=== PATIENT | male | born 1960 | race Caucasian/White ===

== ENCOUNTER 2019-02-10 18:02 | Emergency (ER) | payer OTHER ==
[2019-02-10 18:07] VITALS: RESP 18
[2019-02-10] MEDS ORDERED: SODIUM CHLORIDE 0.9% 1,000 ML IV ONE (18:23)
[2019-02-10] MEDS ORDERED: HYDROmorphone 1 MG/ML 1 ML SYRINGE IVP STA (18:23)
[2019-02-10] MEDS ORDERED: ONDANSETRON 4 MG/2 ML VIAL IVP STA (18:26)
--- NOTE | 2019-02-10 18:42 | ED ---
General Adult HPI - General Chief complaint: Extremity Injury, Lower Stated complaint: knee pain Time Seen by Provider: 02/10/19 18:08 Source: patient Mode of arrival: wheelchair Limitations: no limitations - History of Present Illness Initial comments: 58-year-old male patient presents to the emergency department today for evaluation of right knee pain and swelling. Patient states that the knee started to swell up yesterday morning and has been worsening since. Patient states that the pain is intense. States he is unable to fully straighten the l eg or flex the knee. Denies any redness to the knee. He denies any fever or chills however did have elevated temperature in triage of 101.1F. Patient states he did have an injury to the knee 2 years ago. He denies any recent injury. He denies any numbness or tingling to the leg. Patient denies any recent rash, shortness breath, chest pain, abdominal pain, nausea, vomiting, diarrhea, constipation, back pain, dizziness, weakness, hematuria, dysuria, urinary urgency, urinary frequency, headache, visual changes, or any other complaints. - Related Data Home Medications Medication Instructions Recorded Confirmed Acetaminophen Tab [Tylenol Tab] 1,500 mg PO DAILY PRN 02/10/19 02/10/19 Previous Rx's Medication Instructions Recorded Hydrocodone/Acetaminophen [[place] 1 tab PO Q6HR PRN #12 tab 02/10/19 5-325] Ketorolac [Toradol] 10 mg PO Q6HR #12 tab 02/10/19 Allergies Allergy/AdvReac Type Severity Reaction Status Date / Time No Known Allergies Allergy Verified 02/10/19 20:24 Review of Systems ROS Statement: Those systems with pertinent positive or pertinent negative responses have been documented in the HPI. ROS Other: All systems not noted in ROS Statement are negative. Past Medical History Past Medical History: No Reported History History of Any Multi-Drug Resistant Organisms: None Reported Past Surgical History: Hernia Repair, Orthopedic Surgery Past Psychological History: No Psychological Hx Reported Smoking Status: Current every day smoker Past Alcohol Use History: Occasional Past Drug Use History: None Reported General Exam Limitations: no limitations General appearance: alert, in no apparent distress, other (Physical well-developed, well-nourished adult male patient in no acute distress. Vital signs upon presentation are temperature 101.1F, pulse 76, respirations 18, blood pressure 171/80, pulse ox 98% on room air.) Eye exam: Present: normal appearance, PERRL, EOMI. Absent: scleral icterus, conjunctival injection, periorbital swelling ENT exam: Present: normal exam, normal oropharynx, mucous membranes moist Respiratory exam: Present: normal lung sounds bilaterally. Absent: respiratory distress, wheezes, rales, rhonchi, stridor Cardiovascular Exam: Present: regular rate, normal rhythm, normal heart sounds. Absent: systolic murmur, diastolic murmur, rubs, gallop, clicks Extremities exam: Present: normal capillary refill, joint swelling (Swelling surrounding the right knee joint), other (Skin to the right lower showed is pink, warm, dry. Cap refills less than 3 seconds. Pedal and posttibial pulses 2+ and equal bilaterally.). Absent: normal inspection, full ROM (Patient has decreased range of motion to the right knee), tenderness, pedal edema, calf tenderness Neurological exam: Present: alert, oriented X3, CN II-XII intact Psychiatric exam: Present: normal affect, normal mood Skin exam: Present: warm, dry, intact, normal color. Absent: rash Course Vital Signs 02/10/19 02/10/19 02/10/19 18:04 19:34 20:50 Temperature 101.1 F H 100.2 F H Pulse Rate 76 64 Respiratory 18 18 18 Rate Blood Pressure 171/80 164/73 135/73 O2 Sat by Pulse 98 95 96 Oximetry 02/10/19 23:54 Temperature 98.6 F Pulse Rate 70 Respiratory 18 Rate Blood Pressure 130/80 O2 Sat by Pulse 98 Oximetry Medical Decision Making - Medical Decision Making 58-year-old male patient presented to the emergency department today for evaluation of right knee pain and swelling. Physical examination did reveal generalized swelling of the right knee with effusion. Neurovascular status is intact. There is no overlying cellulitis or warmth. Patient was febrile at 101.1F. Labs reviewed and revealed normal white blood cell, dysuria or C- reactive protein of 41.6. Dr. Colmenares was consulted for possible septic joint, he did perform knee aspiration, fluid was sent for analysis. Results showed 41,200 nucleated cells. Gram stain was negative for organisms. Crystals and culture are still pending. Patient was reporting improve symptoms after aspiration pain medication here in the emergency department. Patient will be discharged at this time with anti-inflammatory and pain medication. He is instructed to follow-up with Dr. Colmenares for recheck as soon as possible. Return parameters were discussed in detail. He verbalizes understanding and agrees with this plan. - Lab Data Result diagrams: 02/10/19 18:45 02/10/19 18:45 Lab Results 02/10/19 02/10/19 02/10/19 Range/Units 18:45 18:45 18:45 WBC 10.1 (3.8-10.6) k/uL RBC 4.47 (4.30-5.90) m/uL Hgb 14.1 (13.0-17.5) gm/dL Hct 42.7 (39.0-53.0) % MCV 95.6 (80.0-100.0) fL MCH 31.5 (25.0-35.0) pg MCHC 32.9 (31.0-37.0) g/dL RDW 13.9 (11.5-15.5) % Plt Count 295 (150-450) k/uL Neutrophils % 85 % Lymphocytes % 7 % Monocytes % 7 % Eosinophils % 1 % Basophils % 0 % Neutrophils # 8.6 H (1.3-7.7) k/uL Lymphocytes # 0.7 L (1.0-4.8) k/uL Monocytes # 0.7 (0-1.0) k/uL Eosinophils # 0.1 (0-0.7) k/uL Basophils # 0.0 (0-0.2) k/uL ESR 11 (0-15) mm/hr Sodium 137 (137-145) mmol/L Potassium 4.3 (3.5-5.1) mmol/L Chloride 105 (98-107) mmol/L Carbon Dioxide 24 (22-30) mmol/L Anion Gap 8 mmol/L BUN 11 (9-20) mg/dL Creatinine 0.62 L (0.66-1.25) mg/dL Est GFR (CKD-EPI)AfAm >90 (>60 ml/min/1.73 sqM) Est GFR (CKD-EPI)NonAf >90 (>60 ml/min/1.73 sqM) Glucose 130 H (74-99) mg/dL Plasma Lactic Acid Quang 1.5 (0.7-2.0) mmol/L Calcium 9.3 (8.4-10.2) mg/dL Total Bilirubin 1.0 (0.2-1.3) mg/dL AST 15 L (17-59) U/L ALT 15 L (21-72) U/L Alkaline Phosphatase 99 (38-126) U/L C-Reactive Protein 41.6 H (<10.0) mg/L Total Protein 6.4 (6.3-8.2) g/dL Albumin 4.0 (3.5-5.0) g/dL Fluid Source Fluid Color Fluid Appearance Fluid RBC /uL Fluid Nucleated Cells /uL Fluid Polynuclear WBCs % Fluid Mononuclear WBCs % 02/10/19 Range/Units 21:22 WBC (3.8-10.6) k/uL RBC (4.30-5.90) m/uL Hgb (13.0-17.5) gm/dL Hct (39.0-53.0) % MCV (80.0-100.0) fL MCH (25.0-35.0) pg MCHC (31.0-37.0) g/dL RDW (11.5-15.5) % Plt Count (150-450) k/uL Neutrophils % % Lymphocytes % % Monocytes % % Eosinophils % % Basophils % % Neutrophils # (1.3-7.7) k/uL Lymphocytes # (1.0-4.8) k/uL Monocytes # (0-1.0) k/uL Eosinophils # (0-0.7) k/uL Basophils # (0-0.2) k/uL ESR (0-15) mm/hr Sodium (137-145) mmol/L Potassium (3.5-5.1) mmol/L Chloride (98-107) mmol/L Carbon Dioxide (22-30) mmol/L Anion Gap mmol/L BUN (9-20) mg/dL Creatinine (0.66-1.25) mg/dL Est GFR (CKD-EPI)AfAm (>60 ml/min/1.73 sqM) Est GFR (CKD-EPI)NonAf (>60 ml/min/1.73 sqM) Glucose (74-99) mg/dL Plasma Lactic Acid Quang (0.7-2.0) mmol/L Calcium (8.4-10.2) mg/dL Total Bilirubin (0.2-1.3) mg/dL AST (17-59) U/L ALT (21-72) U/L Alkaline Phosphatase (38-126) U/L C-Reactive Protein (<10.0) mg/L Total Protein (6.3-8.2) g/dL Albumin (3.5-5.0) g/dL Fluid Source Synovial Fluid Color [place] Fluid Appearance Cloudy Fluid RBC 63529 /uL Fluid Nucleated Cells 06573 /uL Fluid Polynuclear WBCs 93 % Fluid Mononuclear WBCs 7 % - Radiology Data Radiology results: report reviewed, image reviewed Three-view x-ray of the right knee were obtained. Report was reviewed in its entirety. Impression by Dr. Arnold shows no acute fracture dislocation. Severe narrowing and spurring medio-tibiofemoral compartment. Mild to moderate narrowing lateral tibiofemoral compartment. There is moderate narrowing and spurring patellofemoral compartment. There is a large suprapatellar joint effusion with increased density around the suprapatellar bursa. Disposition Clinical Impression: Arthritis of right knee, Effusion, right knee Disposition: HOME SELF-CARE Condition: Good Instructions (If sedation given, give patient instructions): Osteoarthritis (ED), Swollen Knee Joint (ED) Additional Instructions: Use rosa wrap for comfort and support. Take medication as directed. Follow up with access control specialist for recheck as soon as possible. Return to the emergency department for any new, worsening, or concerning symptoms. Prescriptions: Hydrocodone/Acetaminophen [[place] 5-325] 1 tab PO Q6HR PRN #12 tab PRN Reason: Pain Ketorolac [Toradol] 10 mg PO Q6HR #12 tab Is patient prescribed a controlled substance at d/c from ED?: No Referrals: Angelito Colmenares MD [Medical Doctor] - 1-2 days Time of Disposition: 23:32
[2019-02-10 19:05] LABS: Basophils % (A) 0 %; Eosinophils # (A) 0.1 k/uL (0-0.7); Eosinophils % (A) 1 %; HCT 42.7 % (39.0-53.0); HGB 14.1 gm/dL (13.0-17.5); Lymphocytes # (A) 0.7 k/uL (1.0-4.8); Lymphocytes % (A) 7 %; MCH 31.5 pg (25.0-35.0); MCHC 32.9 g/dL (31.0-37.0); MCV 95.6 fL (80.0-100.0); Mean Platelet Volume 6.9; Monocytes # (A) 0.7 k/uL (0-1.0); Monocytes % (A) 7 %; Neutrophils # (A) 8.6 k/uL (1.3-7.7); Neutrophils % (A) 85 %; Platelet Count 295 k/uL (150-450); RBC 4.47 m/uL (4.30-5.90); RDW 13.9 % (11.5-15.5); WBC 10.1 k/uL (3.8-10.6)
[2019-02-10] MEDS ORDERED: ACETAMINOPHEN TAB 500 MG TAB PO STA (19:07)
[2019-02-10 19:19] LABS: ALT 15 U/L (21-72); AST 15 U/L (17-59); Alkaline Phosphatase 99 U/L (38-126); Anion Gap 8 mmol/L; Blood Urea Nitrogen 11 mg/dL (9-20); C Reactive Protein 41.6 mg/L (<10.0); Calcium 9.3 mg/dL (8.4-10.2); Carbon Dioxide 24 mmol/L (22-30); Chloride 105 mmol/L (98-107); Glucose 130 mg/dL (74-99); Potassium 4.3 mmol/L (3.5-5.1); Sodium 137 mmol/L (137-145); Total Protein 6.4 g/dL (6.3-8.2)
--- NOTE | 2019-02-10 19:25 | XR ---
EXAMINATION TYPE: XR knee complete RT DATE OF EXAM: 02/10/2019 CLINICAL HISTORY: Injury 2 years ago with pain and swelling TECHNIQUE: Three views of the right knee are obtained. COMPARISON: None. FINDINGS: There is no acute fracture/dislocation evident in right knee. There is severe narrowing an d spurring medial tibiofemoral compartment. There is mild/moderate narrowing lateral tibiofemoral co mpartment. There is moderate narrowing and spurring patellofemoral compartment . There is large supra patellar joint effusion with increased density suprapatellar bursa. IMPRESSION: As above.
[2019-02-10 19:56] LABS: Erythrocyte Sedimentation Rate 11 mm/hr (0-15)
[2019-02-10] MEDS ORDERED: VANCOMYCIN IV PER PHARMACY 1 EACH MISC MISCELLANE PRN (20:20)
[2019-02-10] MEDS ORDERED: HYDROmorphone 2 MG/ML 1 ML SYRINGE IVP STA (20:48)
[2019-02-10] MEDS ORDERED: VANCOMYCIN 1,750 MG in SODIUM CHLORIDE 0.9% 500 ML 500 ML IVPB STA (20:54)
[2019-02-10] MEDS ORDERED: LIDOCAINE 1% INJ 10MG/ML (20 ML MDV) SQ ONE (20:55)
--- NOTE | 2019-02-10 21:34 | P.CNOR ---
History of Present Illness - [facility] Consult date: 02/10/19 Consult reason: joint pain History of present illness: The patient is a 58-year-old male with a medical history significant for cigarette smoking and a known history of posttraumatic right knee arthritis. He presented to the ER with increasing knee pain and swelling. Over the last week his knee pain is progressively worsened to the point that he had difficulty walking today. He's had low-grade fevers but denies chills or feelings of generalized malaise. He was seen in the ER were clinically he was found to have a large effusion, x-rays showed severe arthritis, and his CRP was elevated. Orthopedics was consulted to rule out septic arthritis. Past Medical History Past Medical History: No Reported History History of Any Multi-Drug Resistant Organisms: None Reported Past Surgical History: Hernia Repair, Orthopedic Surgery Past Psychological History: No Psychological Hx Reported Smoking Status: Current every day smoker Past Alcohol Use History: Occasional Past Drug Use History: None Reported Medications and Allergies Home Medications Medication Instructions Recorded Confirmed Type Acetaminophen Tab [Tylenol Tab] 1,500 mg PO DAILY PRN 02/10/19 02/10/19 History Allergies Allergy/AdvReac Type Severity Reaction Status Date / Time No Known Allergies Allergy Verified 02/10/19 20:24 Physical Examination A focused examination of the right lower extremity was conducted. On inspection of the knee there is diffuse swelling and a large, tense knee effusion. There is mild warmth to the knee but no overlying erythema or fluctuance. There is exquisite tenderness throughout the knee. There is pain with any attempted passive range of motion. Results X-rays of the right knee show severe arthritic changes and a large effusion. - Labs Labs: Abnormal Lab Results - Last 24 Hours (Table) 02/10/19 02/10/19 Range/Units 18:45 18:45 Neutrophils # 8.6 H (1.3-7.7) k/uL Lymphocytes # 0.7 L (1.0-4.8) k/uL Creatinine 0.62 L (0.66-1.25) mg/dL Glucose 130 H (74-99) mg/dL AST 15 L (17-59) U/L ALT 15 L (21-72) U/L C-Reactive Protein 41.6 H (<10.0) mg/L H & H 02/10/19 Range/Units 18:45 Hgb 14.1 (13.0-17.5) gm/dL Hct 42.7 (39.0-53.0) % Result Diagrams: 02/10/19 18:45 02/10/19 18:45 Assessment and Plan Plan: The patient is a 58-year-old male with a medical history significant for cigarette smoking and known history of right knee arthritis presenting with acu te onset right knee effusion. An aspiration was performed in the emergency department and close to 100 mL of thick bloody fluid was aspirated. The fluid was sent to lab for Gram stain, cultures, cell count, and crystal analysis. If the synovial fluid analysis comes back as either crystalline arthropathy or an acute traumatic effusion the patient to be discharged. If there is concern for infection he'll need to be admitted to internal medicine for IV antibiotics, a formal incision and drainage in the operating room and an infectious disease consultation. Final disposition is pending synovial fluid analysis. Procedure: Verbal consent for a right knee aspiration was obtained area did the skin over the superolateral pole of patella was prepped with alcohol and ChloraPrep. An 18-gauge needle was inserted into the suprapatellar pouch and a 10 mL syringe was filled with fluid and handed off to be sent to the lab. A 20 mL syringe was then used to remove the remaining fluid from the knee. Close to 100 mL of fluid was removed. The needle was withdrawn and a Band-Aid was applied. The patient tolerated the aspiration well. Time with Patient: Less than 30
--- NOTE | 2019-02-10 22:49 | XR ---
EXAM: XR Chest, 2 Views CLINICAL HISTORY: Pain TECHNIQUE: Frontal and lateral views of the chest. COMPARISON: No relevant prior studies available. FINDINGS: Lungs: Unremarkable. No consolidation. Pleural space: Unremarkable. No pneumothorax. Heart: Unremarkable. No cardiomegaly. Mediastinum: Unremarkable. Bones/joints: Unremarkable. IMPRESSION: Normal chest x-rays.
[2019-02-10 23:20] LABS: Appearance,BF Cloudy; Color,BF Orange; Nucleated Cells, Body Fluid 41200 /uL; RBC, Body Fluid 91500 /uL
[2019-02-10 23:55] VITALS: BP 130/80; PULSE 70; TEMP 98.6
[2019-02-11 00:13] LABS: Mononuclear WBC,Body Fluid 7 %; Polynuclear WBC,Body Fluid 93 %; Total Cells Counted,Body Fluid 100
[2019-02-11] MEDS ORDERED: VANCOMYCIN 1,500 MG in SODIUM CHLORIDE 0.9% 250 ML IVPB SCH (06:00)
== END 2019-02-10 23:54 | disposition home or self-care (01) ==
LOC: EC 18:02
DX: M17.11 Unilateral primary osteoarthritis, right knee (principal); M25.461 Effusion, right knee; F17.210 Nicotine dependence, cigarettes, uncomplicated; Z53.8 Procedure and treatment not carried out for other reasons
CPT/HCPCS: 99284; 20610; 96365; 96375 ×2; 96376; 96361; 36415; 89060; 80053; 85652; 89050; 83605; 85025; 86140; 87040; 87070; 87205; 73562; 71046; J1170 ×2; J2405; J0696

== ENCOUNTER 2019-02-11 10:41 | Inpatient (IN) | payer OTHER ==
--- NOTE | 2019-02-11 11:26 | ED ---
General Adult HPI - General Chief complaint: Extremity Injury, Lower Stated complaint: knee pain-revisit Time Seen by Provider: 02/11/19 10:54 Source: patient, RN notes reviewed Mode of arrival: ambulatory Limitations: no limitations - History of Present Illness Initial comments: 58-year-old male presents to the emergency department for a chief complaint of right knee pain and swelling 2 days. Patient states this started hurting Tuesday morning when he woke up. States it was swollen at that time. States that yesterday it was too painful to walk on so he came to the emergency department. Patient states the knee was drained by Dr Noel and he was sent home as laboratory work showed a likely inflammatory etiology. States that he felt much better after the knee was drained. However throughout the night it started to swell again and pain has returned. Patient did have a fever yesterday in the ER. However no fevers overnight that he is aware of. He does admit to a cough for the past 2 weeks however chest x-ray yesterday was negative. Patient has no other complaints at this time including shortness of breath, chest pain, abdominal pain, nausea or vomiting, headache, or visual changes. - Related Data Home Medications Medication Instructions Recorded Confirmed Acetaminophen Tab [Tylenol Tab] 1,500 mg PO DAILY PRN 02/10/19 02/10/19 Previous Rx's Medication Instructions Recorded Hydrocodone/Acetaminophen [[place] 1 tab PO Q6HR PRN #12 tab 02/10/19 5-325] Ketorolac [Toradol] 10 mg PO Q6HR #12 tab 02/10/19 Allergies Allergy/AdvReac Type Severity Reaction Status Date / Time No Known Allergies Allergy Verified 02/11/19 10:48 Review of Systems ROS Statement: Those systems with pertinent positive or pertinent negative responses have been documented in the HPI. ROS Other: All systems not noted in ROS Statement are negative. Past Medical History Past Medical History: No Reported History History of Any Multi-Drug Resistant Organisms: None Reported Past Surgical History: Hernia Repair, Orthopedic Surgery Past Psychological History: No Psychological Hx Reported Smoking Status: Current every day smoker Past Alcohol Use History: Occasional Past Drug Use History: None Reported General Exam Limitations: no limitations General appearance: alert, in no apparent distress Head exam: Present: atraumatic, normocephalic, normal inspection Eye exam: Present: normal appearance, PERRL, EOMI. Absent: scleral icterus, conjunctival injection, periorbital swelling ENT exam: Present: normal exam, mucous membranes moist Neck exam: Present: normal inspection, full ROM. Absent: tenderness, meningismus, lymphadenopathy Respiratory exam: Present: normal lung sounds bilaterally. Absent: respiratory distress, wheezes, rales, rhonchi, stridor Cardiovascular Exam: Present: regular rate, normal rhythm, normal heart sounds. Absent: systolic murmur, diastolic murmur, rubs, gallop, clicks Extremities exam: Present: tenderness (generalized tenderness noted over the right knee), normal capillary refill (cap refill < 2 seconds and dp pulse 2+), joint swelling (significant edema noted of the right knee joint, no erythema present), other (sensation intact in RLE, skin intact). Absent: full ROM (patient is able to flex to about 30 degrees ), calf tenderness Course Vital Signs 02/11/19 10:45 Temperature 98.6 F Pulse Rate 81 Respiratory 18 Rate Blood Pressure 164/84 O2 Sat by Pulse 98 Oximetry Medical Decision Making - Medical Decision Making 50-year-old male with right knee pain and swelling 3 days. States it is painful to walk on and then. On exam patient is a have about 30 flexion. Significant edema noted. No significant erythema. CBC unremarkable. White count 7.6. CMP does show a CRP of 181. Synovial fluid results reviewed from yesterday. Patient was seen by Dr. Noel, likely thinks this is inflammatory but is going to take patient the patient for irrigation. Patient will be ad mitted, and no antibiotics per Dr. noel. - Lab Data Result diagrams: 02/11/19 12:07 02/11/19 12:07 Lab Results 02/11/19 02/11/19 Range/Units 12:07 12:07 WBC 7.6 (3.8-10.6) k/uL RBC 4.25 L (4.30-5.90) m/uL Hgb 13.5 (13.0-17.5) gm/dL Hct 40.3 (39.0-53.0) % MCV 94.9 (80.0-100.0) fL MCH 31.9 (25.0-35.0) pg MCHC 33.6 (31.0-37.0) g/dL RDW 13.4 (11.5-15.5) % Plt Count 252 (150-450) k/uL Neutrophils % 73 % Lymphocytes % 12 % Monocytes % 12 % Eosinophils % 1 % Basophils % 0 % Neutrophils # 5.6 (1.3-7.7) k/uL Lymphocytes # 0.9 L (1.0-4.8) k/uL Monocytes # 0.9 (0-1.0) k/uL Eosinophils # 0.1 (0-0.7) k/uL Basophils # 0.0 (0-0.2) k/uL Sodium 136 L (137-145) mmol/L Potassium 4.4 (3.5-5.1) mmol/L Chloride 107 (98-107) mmol/L Carbon Dioxide 24 (22-30) mmol/L Anion Gap 5 mmol/L BUN 10 (9-20) mg/dL Creatinine 0.62 L (0.66-1.25) mg/dL Est GFR (CKD-EPI)AfAm >90 (>60 ml/min/1.73 sqM) Est GFR (CKD-EPI)NonAf >90 (>60 ml/min/1.73 sqM) Glucose 106 H (74-99) mg/dL Calcium 9.0 (8.4-10.2) mg/dL Total Bilirubin 1.6 H (0.2-1.3) mg/dL AST 16 L (17-59) U/L ALT 19 L (21-72) U/L Alkaline Phosphatase 87 (38-126) U/L C-Reactive Protein 181.6 H (<10.0) mg/L Total Protein 5.9 L (6.3-8.2) g/dL Albumin 3.5 (3.5-5.0) g/dL Disposition Clinical Impression: Knee effusion, right, Elevated C-reactive protein (CRP) Disposition: ADMITTED IP TO THIS HOSP Condition: Fair Is patient prescribed a controlled substance at d/c from ED?: No Referrals: None,Stated [Primary Care Provider] - 1-2 days Time of Disposition: 14:18
[2019-02-11] MEDS ORDERED: KETOROLAC 30 MG/ML 1 ML VIAL IM STA (11:27)
[2019-02-11] MEDS ORDERED: SODIUM CHLORIDE 0.9% 1,000 ML IV STA (11:57)
[2019-02-11 12:17] LABS: Basophils % (A) 0 %; Eosinophils # (A) 0.1 k/uL (0-0.7); Eosinophils % (A) 1 %; HCT 40.3 % (39.0-53.0); HGB 13.5 gm/dL (13.0-17.5); Lymphocytes # (A) 0.9 k/uL (1.0-4.8); Lymphocytes % (A) 12 %; MCH 31.9 pg (25.0-35.0); MCHC 33.6 g/dL (31.0-37.0); MCV 94.9 fL (80.0-100.0); Mean Platelet Volume 6.9; Monocytes # (A) 0.9 k/uL (0-1.0); Monocytes % (A) 12 %; Neutrophils # (A) 5.6 k/uL (1.3-7.7); Neutrophils % (A) 73 %; Platelet Count 252 k/uL (150-450); RBC 4.25 m/uL (4.30-5.90); RDW 13.4 % (11.5-15.5); WBC 7.6 k/uL (3.8-10.6)
[2019-02-11 12:31] LABS: ALT 19 U/L (21-72); AST 16 U/L (17-59); Albumin 3.5 g/dL (3.5-5.0); Alkaline Phosphatase 87 U/L (38-126); Anion Gap 5 mmol/L; Blood Urea Nitrogen 10 mg/dL (9-20); Carbon Dioxide 24 mmol/L (22-30); Chloride 107 mmol/L (98-107); Glucose 106 mg/dL (74-99); Potassium 4.4 mmol/L (3.5-5.1); Sodium 136 mmol/L (137-145); Total Bilirubin 1.6 mg/dL (0.2-1.3); Total Protein 5.9 g/dL (6.3-8.2)
[2019-02-11 12:47] LABS: C Reactive Protein 181.6 mg/L (<10.0)
[2019-02-11] MEDS ORDERED: NALOXONE 0.4 MG/ML 1 ML VIAL IV PRN (13:57)
[2019-02-11] MEDS ORDERED: KETOROLAC 30 MG/ML 1 ML VIAL IVP PRN (13:57)
--- NOTE | 2019-02-11 14:10 | P.HPOR ---
History of Present Illness H&P Date: 02/11/19 The patient is a 58-year-old male with a medical history significant for cigarette smoking who presented to the ER last night with a large effusion. He underwent aspiration by myself and was discharged home on indomethacin as there was low clinical concern for septic arthritis due to the synovial white blood count being 10,000. The patient did not fill his indomethacin prescription. This morning he woke up in the effusion had completely recurred. It became tense swollen and warm and very difficult to walk. The CRP also increased from 40 to almost 150. The patient denies any recent trauma to the knee. He denies fevers or chills. Unfortunately our facility is unable to perform synovial crystal analysis over the weekend so we have been unable to assess for the possibility of crystalline arthropathy. Past Medical History Past Medical History: No Reported History History of Any Multi-Drug Resistant Organisms: None Reported Past Surgical History: Hernia Repair, Orthopedic Surgery Past Psychological History: No Psychological Hx Reported Smoking Status: Current every day smoker Past Alcohol Use History: Occasional Past Drug Use History: None Reported Medications and Allergies Home Medications Medication Instructions Recorded Confirmed Type Acetaminophen Tab [Tylenol Tab] 1,500 mg PO DAILY PRN 02/10/19 02/10/19 History Hydrocodone/Acetaminophen [[place] 1 tab PO Q6HR PRN #12 tab 02/10/19 Rx 5-325] Ketorolac [Toradol] 10 mg PO Q6HR #12 tab 02/10/19 Rx Allergies Allergy/AdvReac Type Severity Reaction Status Date / Time No Known Allergies Allergy Verified 02/11/19 10:48 Physical Examination A focused examination of the right leg was conducted. On inspection there is a large tense effusion there is warmth and significant tenderness over the knee. He has pain with any attempts at passive range of motion. Results Results from yesterday's knee aspiration showed 10,000 nucleated white blood cells. His CRP has significantly increased today up into the 140s. His x-ray from yesterday shows no acute fractures and severe arthritis. - Labs Labs: Abnormal Lab Results - Last 24 Hours (Table) 02/11/19 02/11/19 Range/Units 12:07 12:07 RBC 4.25 L (4.30-5.90) m/uL Lymphocytes # 0.9 L (1.0-4.8) k/uL Sodium 136 L (137-145) mmol/L Creatinine 0.62 L (0.66-1.25) mg/dL Glucose 106 H (74-99) mg/dL Total Bilirubin 1.6 H (0.2-1.3) mg/dL AST 16 L (17-59) U/L ALT 19 L (21-72) U/L C-Reactive Protein 181.6 H (<10.0) mg/L Total Protein 5.9 L (6.3-8.2) g/dL H & H 02/11/19 Range/Units 12:07 Hgb 13.5 (13.0-17.5) gm/dL Hct 40.3 (39.0-53.0) % Result Diagrams: 02/11/19 12:07 02/11/19 12:07 Assessment and Plan Plan: I do lengthy discussion with the patient and his . He has no history of trauma and his x-rays show no evidence of fracture so I have a low index of suspicion of an occult fracture and hemarthrosis. His exam is more consistent with either cyrstalline arthropathy or septic arthritis. We discussed an absolute indication for irrigation and debridement is over 50,000 white blood cells or positive cultures. His synovial white blood count yesterday was significantly lower than this, but his CRP has increased over the last 24 hours. We discussed a second aspiration of the knee and continued observation while waiting for the cultures versus admitting him to the hospital and performing an arthroscopic irrigation and debridement of the knee. The patient and his decided on the latter. They understand the potential for continued or worsened problems. We will consult internal medicine and infectious disease. We will continue to follow his cultures. We will take deep cultures in the operating room. We will plan on an arthroscopic irrigation and debridement later this afternoon. Time with Patient: Greater than 30
[2019-02-11] MEDS ORDERED: LIDOCAINE 1% INJ 10MG/ML (20 ML MDV) ONE (15:07)
[2019-02-11] MEDS ORDERED: PROPOFOL 10 MG/ML 20 ML VIAL IV ONE (15:07)
[2019-02-11] MEDS ORDERED: fentaNYL (PF) 50 MCG/ML 2 ML AMP ONE (15:07)
[2019-02-11] MEDS ORDERED: LACTATED RINGERS 1,000 ML IV ONE (15:08)
[2019-02-11] MEDS ORDERED: ONDANSETRON 4 MG/2 ML VIAL IVP PRN (16:09)
[2019-02-11] MEDS ORDERED: HYDROmorphone 0.5 MG/0.5 ML SYRINGE IVP PRN (16:09)
[2019-02-11] MEDS ORDERED: HYDROcodone/APAP 5-325MG 1 EACH TAB PO PRN (16:09)
[2019-02-11] MEDS ORDERED: SENNOSIDES-DOCUSATE SODIUM 1 EACH TAB PO PRN (16:09)
[2019-02-11] MEDS ORDERED: VANCOMYCIN IV PER PHARMACY 1 EACH MISC MISCELLANE PRN (16:18)
[2019-02-11] MEDS ORDERED: ONDANSETRON 4 MG/2 ML VIAL IVP ONE (16:19)
--- NOTE | 2019-02-11 16:21 | P.OP ---
Date of Procedure: 02/11/19 Preoperative Diagnosis: 1. Right knee effusion, possible septic arthritis versus crystalline arthropathy 2. Severe right knee arthritis 3. Current every day cigarette smoker Postoperative Diagnosis: Same Procedure(s) Performed: 1. Right knee arthroscopy and arthroscopic irrigation and debridement 2. Right knee partial arthroscopic synovectomy Anesthesia: DAVID Surgeon: Angelito Colmenares Quick Mixer Operator #1: Samina May Estimated Blood Loss (ml): 10 IV fluids (ml): 200 Pathology: other (Fluid for cultures) Condition: stable Disposition: PACU Indications for Procedure: The patient is a very pleasant 58-year-old man with a medical history significant for smoking cigarettes and having severe right knee arthritis who presented to our ER last night with an atraumatic right knee effusion and elevated CRP. I valued the patient in the emergency department and aspirated his knee. The fluid was sent for cultures, Gram stain, cell count, and crystals. Cell count came back under 10,000 so he was discharged home with a prescription for indomethacin and a diagnosis of presumptive crytstalline arthropathy. Unfortunately they did not fill the prescription for indomethacin. This morning the patient's knee became increasingly swollen again and was very painful. He is having a difficult time ambulating so he came back to the emergency department with his . His repeat CRP was close to 150. He had severe pain and a tense effusion of the knee. I evaluated the patient in the emergency department and discussed treatment options. We discussed a second attempt at aspiration and sending the fluid again for cell count, crystal analysis, Gram stain, and cultures versus going to the operating room and performing an arthroscopic irrigation and debridement. The patient and his requested irrigating the joint in the operating room. We discussed the potential risks and competitions of surgery including but not limited to risk of anesthesia, continued or worsened infection, damage to the joint, iatrogenic fracture, continued or worsened pain, need for further surgery, spread of the infection, DVT, PE, other medical complications, and inability to regain preinjury level of function, and possibly loss of life or limb. The patient and his understand these complications and also analysis there are other less common complications possible. They also understand that due to his cigarette smoking he is a higher risk of having a complication. Operative Findings: There was a large amount of thick yellow fluid in the knee. There were severe degenerative changes in the patellofemoral, medial, and lateral compartments. The synovium was inflamed particularly in the suprapatellar pouch. Description of Procedure: The patient was identified in preoperative holding and the correct right leg was marked with my initials. I reviewed the consent form and the planned procedure with the patient and his . All of their questions were answered. The leni jarrett was then brought back to the operating room by anesthesia. He was transferred onto an or table where a general anesthetic was administered. A thigh brar was placed. A tourniquet was placed prior to this. A pillow was placed under the left knee's of the foot of the table could be dropped. The right leg was then prepped and draped in the standard sterile fashion. Prior to starting surgery timeout was performed identifying the correct patient, operative extremity, and procedure. The patient's leg was then elevated for 2 minutes and the tourniquet was inflated to 250 mmHg. I began by outlining the surface anatomy over the anterior aspect of the knee. The inferior pole the patella, patellar tendon, and tibial tubercle were marked out. Standard anterolateral and anteromedial portals were drawn out on the skin. A stab incision was made over the anterolateral portal. A blunt obturator and trocar were inserted into the knee. The obturator was removed and there was a large abarca of yellow fluid through the trocar. The fluid was thick and yellow. There was a very large amount of fluid that was expressed. Cultures were taken of this fluid. An arthroscope was then inserted through the trocar, the knee was extended, and the arthroscope was placed in the suprapatellar pouch. The anteromedial portal was then made with a scalpel. The arthroscopic shaver was carefully inserted through the anteromedial portal and directed into the suprapatellar pouch. On inspection of the supra patellar pouch the synovium appeared hypertrophic and inflamed. A limited synovectomy w as performed. A diagnostic arthroscopy was then performed. The patellofemoral joint, medial compartment, and lateral compartment had marked degenerative changes. Both the scope and the shaver were driven back into the suprapatellar pouch. An outflow portal was made along the superolateral portal of the patella under direct visualization. I then proceeded to run 9 L of sterile saline through the knee joint until the outflow water was clear. The outflow portal was then removed and a drain was placed through the portal at the superolateral pole or the patella. I visualized the drain within the subpatellar pouch. The arthroscope and shaver were then removed. The portals were closed with 3-0 nylon. The drain was sewn in place. A sterile dressing was applied followed by an [place] wrap. The drain was hooked up to a medium accordion Hemovac drain. The patient was then awoken from his anesthesia, transferred from the or table to a gurney, and brought to PACU without the procedure well. Plan: The patient is going to be admitted under my care for IV antibiotics, and infectious disease consultation, and close follow-up of his clinical exam. He's had several large effusions over the last 24 hours and an increasing CRP. The fluid taken from his knee today is consistent with both septic arthritis and Crystalline arthropathy. We will follow the cultures and crystal analysis taken . He should feel much better now that his knee has been thoroughly irrigated. We will leave his drain in place until the output is less than 10 mL's per shift. He'll be started on an anti-inflammatory.
[2019-02-11] MEDS: SODIUM CHLORIDE 0.9% 1,000 ML IV SCH ×2 (16:52→23:56)
[2019-02-11] MEDS ORDERED: HYDROmorphone 1 MG/ML 1 ML SYRINGE IVP ONE ×2 (17:00→17:05)
[2019-02-11] MEDS: HYDROcodone/APAP 5-325MG 1 EACH TAB PO PRN (17:22)
[2019-02-11] MEDS: hydrOXYzine PAMOATE 25 MG CAP PO PRN (17:22)
[2019-02-11] MEDS: LACTATED RINGERS 1,000 ML IV SCH ×2 (17:24→23:35)
--- NOTE | 2019-02-11 18:06 | P.CONS ---
History of Present Illness - Reason for Consult Consult date: 02/11/19 Right knee effusion, medical management Requesting physician: Angelito Colmenares - Chief Complaint Medical management for right knee effusion - History of Present Illness Patient is a 58-year-old male with PMH of smoking that presents the ED for right knee swelling over the span of 2 days. Patient was seen in the ED yesterday and his right knee was drained by Dr. Colmenares. It was thought to be crystal disease rather than septic arthritis at that time with less than 100,000 WBCs. His CRP was slightly elevated at 41.6. He was discharged home with indomethacin. Patient returned today for worsening swelling of his right knee. CRP was extremely elevated this time at 181.6. Patient was noted to have a T- max of 100.2 degrees Fahrenheit without any leukocytosis. He was admitted for arthroscopic irrigation and debridement. [facility] physicians has been consulted for medical management of the patient. Patient was seen and examined. No acute events overnight. Patient reports 7 out of 10 pain in his right knee. He denies any chest pain, shortness of breath or palpitations. States that this has been ongoing since Tuesday where got worse acutely. States that he had an injury to his right knee 2 years ago where he fell almost 6 feet on his knee. At that time, he was told that he would need surgery, but he did not seek any further medical attention. Review of Systems Pertinent positives and negatives as discussed in HPI, a complete review of systems was performed and all other systems are negative. Past Medical History Past Medical History: No Reported History History of Any Multi-Drug Resistant Organisms: None Reported Past Surgical History: Hernia Repair, Orthopedic Surgery Past Psychological History: No Psychological Hx Reported Smoking Status: Current every day smoker Past Alcohol Use History: Occasional Past Drug Use History: None Reported - Past Family History Mother Family Medical History: Diabetes Mellitus Medications and Allergies Home Medications Medication Instructions Recorded Confirmed Type Acetaminophen Tab [Tylenol Tab] 1,500 mg PO DAILY PRN 02/10/19 02/11/19 History Hydrocodone/Acetaminophen [[place] 1 tab PO Q6HR PRN #12 tab 02/10/19 02/11/19 Rx 5-325] Ketorolac [Toradol] 10 mg PO Q6HR #12 tab 02/10/19 02/11/19 Rx Allergies Allergy/AdvReac Type Severity Reaction Status Date / Time No Known Allergies Allergy Verified 02/11/19 14:33 Physical Exam Vitals: Vital Signs Temp Pulse Pulse Resp BP BP Pulse Ox 02/11/19 16:50 59 L 16 140/70 97 02/11/19 16:35 62 16 134/63 96 02/11/19 16:20 52 L 16 120/62 97 02/11/19 16:06 100.2 F H 64 16 125/59 92 L 02/11/19 14:19 86 16 128/79 98 02/11/19 10:45 98.6 F 81 18 164/84 98 Intake and Output 02/11/19 02/11/19 02/11/19 06:59 14:59 22:59 Intake Total 200 Output Total 5 Balance 195 Intake: IV 200 Output: Estimated Blood Loss 5 Other: Weight 77.111 kg General: [non toxic], [no distress], [appears at stated age] Derm: [warm], [dry] Head: [atraumatic], [normocephalic], [symmetric] Eyes: [EOMI], [no lid lag], [anicteric sclera] Mouth: [no lip lesion], [mucus membranes moist] Cardiovascular: [S1S2 reg], [no murmur], [positive posterior tibial pulse bilateral], Lungs: [CTA bilateral], [no rhonchi, no rales] , [no accessory muscle use] Abdominal: [soft], [ nontender to palpation], [no guarding], [no appreciable organomegaly] Ext: [no gross muscle atrophy], [no edema], [right knee swollen, limited R OM due to pain, wrapped dressing clean dry and intact] Neuro: [no focal neuro deficits] Psych: [Alert], [oriented], [appropriate affect] Results CBC & Chem 7: 02/11/19 12:07 02/11/19 12:07 Labs: Abnormal Lab Results - Last 24 Hours (Table) 02/11/19 02/11/19 Range/Units 12:07 12:07 RBC 4.25 L (4.30-5.90) m/uL Lymphocytes # 0.9 L (1.0-4.8) k/uL Sodium 136 L (137-145) mmol/L Creatinine 0.62 L (0.66-1.25) mg/dL Glucose 106 H (74-99) mg/dL Total Bilirubin 1.6 H (0.2-1.3) mg/dL AST 16 L (17-59) U/L ALT 19 L (21-72) U/L C-Reactive Protein 181.6 H (<10.0) mg/L Total Protein 5.9 L (6.3-8.2) g/dL Assessment and Plan Assessment: Assessment and Plan 1. Right knee effusion, possible crystal disease versus septic arthritis 2. Smoker 3. Elevated total bilirubin 1. Patient is afebrile with T-max of 100.2F but no leukocytosis. CRP increased from 41.6-181.6. Knee x-ray from yesterday shows no acute fracture, large suprapatellar joint effusion with increased density of the suprapatellar bursa. Patient is status post arthroscopic debridement POD 0. Plan: Pain control with [place], Dilaudid, indomethacin as needed. Start vancomycin IV and Rocephin IV. Weightbearing as per orthopedic recommendations. Fall precautions. Follow wound cultures. Follow infectious disease consult. Follow PT consult. 2. Plans: Will offer nicotine patch. 3. Total bilirubin 1.6. Likely not related to obstruction as AST/ALT and alkaline phosphatase is within normal limits. Plans: Follow CMP in the morning. DVT prophylaxis: [Lovenox] Discussed with: [Patient] Anticipated discharge: [1-2 days] Anticipated discharge place: [Home] A total of [45] minutes was spent on the care of this complex patient more than 50% of the time was spent in counseling and care coordination. Patient admitted for right knee effusion, status post arthroscopic debridement, cultures pending. Orthopedic surgery and ID is onboard. Patient is pending clinical improvement. Thank you for this consult. Please call with any additional questions.
[2019-02-11] MEDS: VANCOMYCIN 1,500 MG in SODIUM CHLORIDE 0.9% 250 ML IVPB SCH ×2 (18:36→23:33)
[2019-02-11] MEDS: INDOMETHACIN 25 MG CAP PO SCH (19:55)
[2019-02-12] MEDS: HYDROcodone/APAP 5-325MG 1 EACH TAB PO PRN ×2 (06:04→17:15)
[2019-02-12] MEDS: hydrOXYzine PAMOATE 25 MG CAP PO PRN ×2 (06:04→17:15)
[2019-02-12 07:31] LABS: Basophils % (A) 1 %; Eosinophils # (A) 0.1 k/uL (0-0.7); Eosinophils % (A) 2 %; HCT 35.7 % (39.0-53.0); HGB 11.8 gm/dL (13.0-17.5); Lymphocytes # (A) 0.7 k/uL (1.0-4.8); Lymphocytes % (A) 18 %; MCH 32.2 pg (25.0-35.0); MCHC 33.1 g/dL (31.0-37.0); MCV 97.2 fL (80.0-100.0); Mean Platelet Volume 7.1; Monocytes # (A) 0.5 k/uL (0-1.0); Monocytes % (A) 11 %; Neutrophils # (A) 2.7 k/uL (1.3-7.7); Neutrophils % (A) 66 %; Platelet Count 184 k/uL (150-450); RBC 3.68 m/uL (4.30-5.90); RDW 13.6 % (11.5-15.5); WBC 4.1 k/uL (3.8-10.6)
[2019-02-12 07:43] LABS: ALT 18 U/L (21-72); AST 11 U/L (17-59); Albumin 2.9 g/dL (3.5-5.0); Alkaline Phosphatase 73 U/L (38-126); Anion Gap 7 mmol/L; Blood Urea Nitrogen 12 mg/dL (9-20); Calcium 8.5 mg/dL (8.4-10.2); Carbon Dioxide 23 mmol/L (22-30); Chloride 109 mmol/L (98-107); Glucose 83 mg/dL (74-99); Potassium 4.3 mmol/L (3.5-5.1); Sodium 139 mmol/L (137-145); Total Bilirubin 0.9 mg/dL (0.2-1.3); Total Protein 5.2 g/dL (6.3-8.2)
[2019-02-12 08:49] LABS: C Reactive Protein 211.5 mg/L (<10.0)
[2019-02-12] MEDS: INDOMETHACIN 25 MG CAP PO SCH ×2 (09:18→20:45)
[2019-02-12] MEDS: ENOXAPARIN 40 MG/0.4 ML SYRINGE SQ SCH (09:19)
[2019-02-12] MEDS: SODIUM CHLORIDE 0.9% 1,000 ML IV SCH (09:21)
[2019-02-12 09:46] LABS: Erythrocyte Sedimentation Rate 44 mm/hr (0-15)
--- NOTE | 2019-02-12 10:27 | P.PN ---
Subjective Progress Note Date: 02/12/19 Principal diagnosis: right knee effusion Patient was seen and examined. No acute events overnight. Patient reports 7-8 out of 10 severity pain in his right knee. He denies any fever or chills. No nausea or vomiting. Patient with no other complaints today. Objective - Vital Signs Vital signs: Vital Signs Temp 98.5 F 02/12/19 07:43 Pulse 60 02/12/19 07:43 Resp 15 02/12/19 07:43 BP 134/75 02/12/19 07:43 Pulse Ox 94 L 02/12/19 07:43 Intake & Output 02/11/19 02/12/19 02/12/19 18:59 06:59 18:59 Intake Total 550 Output Total 5 990 Balance 545 -990 Weight 77.111 kg Intake: IV 550 Output: Drainage 40 Right Knee 40 Urine 950 Estimated Blood Loss 5 Other: # Voids 0 - Exam General: [non toxic], [no distress], [appears at stated age] Derm: [warm], [dry] Head: [atraumatic], [normocephalic], [symmetric] Eyes: [EOMI], [no lid lag], [anicteric sclera] Mouth: [no lip lesion], [mucus membranes moist] Cardiovascular: [S1S2 reg], [no murmur], [positive posterior tibial pulse bilateral], Lungs: [CTA bilateral], [no rhonchi, no rales] , [no accessory muscle use] Abdominal: [soft], [ nontender to palpation], [no guarding], [no appreciable organomegaly] Ext: [no gross muscle atrophy], [no edema], [right knee swollen, limited R OM due to pain, wrapped dressing clean dry and intact] Neuro: [no focal neuro deficits] Psych: [Alert], [oriented], [appropriate affect] - Labs CBC & Chem 7: 02/12/19 06:57 02/12/19 06:57 Labs: Abnormal Lab Results - Last 24 Hours (Table) 02/11/19 02/11/19 02/12/19 Range/Units 12:07 12:07 06:57 RBC 4.25 L 3.68 L (4.30-5.90) m/uL Hgb 11.8 L (13.0-17.5) gm/dL Hct 35.7 L (39.0-53.0) % Lymphocytes # 0.9 L 0.7 L (1.0-4.8) k/uL ESR 44 H (0-15) mm/hr Sodium 136 L (137-145) mmol/L Chloride (98-107) mmol/L Creatinine 0.62 L (0.66-1.25) mg/dL Glucose 106 H (74-99) mg/dL Total Bilirubin 1.6 H (0.2-1.3) mg/dL AST 16 L (17-59) U/L ALT 19 L (21-72) U/L C-Reactive Protein 181.6 H (<10.0) mg/L Total Protein 5.9 L (6.3-8.2) g/dL Albumin (3.5-5.0) g/dL 02/12/19 Range/Units 06:57 RBC (4.30-5.90) m/uL Hgb (13.0-17.5) gm/dL Hct (39.0-53.0) % Lymphocytes # (1.0-4.8) k/uL ESR (0-15) mm/hr Sodium (137-145) mmol/L Chloride 109 H (98-107) mmol/L Creatinine (0.66-1.25) mg/dL Glucose (74-99) mg/dL Total Bilirubin (0.2-1.3) mg/dL AST 11 L (17-59) U/L ALT 18 L (21-72) U/L C-Reactive Protein 211.5 H (<10.0) mg/L Total Protein 5.2 L (6.3-8.2) g/dL Albumin 2.9 L (3.5-5.0) g/dL Microbiology - Last 24 Hours (Table) 02/11/19 15:45 Gram Stain - Preliminary Knee - Right Wound Culture - Preliminary 02/11/19 15:45 Anaerobic Culture - Preliminary Knee - Right 02/11/19 15:45 Fungal Culture - Preliminary Knee - Right Assessment and Plan Assessment: Assessment and Plan 1. Right knee effusion, possible crystal disease versus septic arthritis 2. Smoker 3. Elevated total bilirubin 1. Patient is afebrile with T-max of 100.2F but no leukocytosis. CRP increased from 41.6-181.6. Knee x-ray from yesterday shows no acute fracture, large suprapatellar joint effusion with increased density of the suprapatellar bursa. Patient is status post arthroscopic debridement POD 1. Plan: Pain control with [place], Dilaudid, indomethacin as needed. Start vancomycin IV and Rocephin IV. Weightbearing as per orthopedic recommendations. Fall precautions. Follow wound cultures. Follow infectious disease consult. Follow PT consult. 2. Plans: Will offer nicotine patch. 3. Total bilirubin 1.6. Likely not related to obstruction as AST/ALT and alkaline phosphatase is within normal limits. Plans: Resolved. Patient admitted for right knee effusion, status post arthroscopic debridement, cultures pending. Orthopedic surgery and ID is onboard. Patient is pending clinical improvement. Thank you for this consult. Please call with any additional questions.
[2019-02-12] MEDS: VANCOMYCIN 1,500 MG in SODIUM CHLORIDE 0.9% 250 ML IVPB SCH ×2 (10:33→16:04)
[2019-02-12] MEDS: LACTATED RINGERS 1,000 ML IV SCH (11:23)
--- NOTE | 2019-02-12 13:07 | P.CONS ---
History of Present Illness - Reason for Consult Consult date: 02/12/19 Possible right knee septic arthritis - History of Present Illness This is a 58-year-old male who gives history that he has had problems with his right knee ever since he fell off a dose or 2 years ago. He has had Guadarrama's cyst surgery but no other surgical interventions on this knee. He initially presented to [facility] emergency center on February 10 and was seen by Dr. Colmenares. X-ray of the right knee showed severe arthritic changes and a large effusion. Dr. Colmenares performed aspiration of almost 100 MLS of thick bloody fluid and specimen was sent for cultures and fluid analysis. Sed rate was 11 and C-reactive protein 41.6. WBC was 10.1, lactic acid 1.5, creatinine 0.62. RBCs 91,500, nucleated cells 43 1200, Cherise nuclear cells 93%, mononuclear WBCs 7%. No crystals were seen. Patient was discharged home on [place], Toradol with [place] wrap for comfort. He returned to the emergency room the following day due to increased pain and inability to ambulate with worsening pain and swelling. He was again afebrile and white count was 4.1. Sed rate 44 and CRP 211.5. Blood culture from February 10 showing no growth after 24 hours. Fluid culture in process. Patient underwent a right knee arthroscopy and arthroscopic irrigation and debridement, right knee partial arthroscopic synovectomy on February [address] Colmenares. There was a large amount of thick yellow fluid in the knee. Temperature max has been 100.2. He is currently on Rocephin and vancomycin. Review of Systems All systems: negative Constitutional: Reports fatigue, Reports poor appetite, Denies anorexia, Denies chills, Denies fever, Denies lethargy, Denies malaise, Denies weakness, Denies weight loss Eyes: denies blurred vision, denies pain Ears, nose, mouth and throat: Denies dental pain, Denies dysphagia, Denies headache, Denies nasal congestion, Denies nasal discharge, Denies sore throat, Denies vertigo Cardiovascular: Denies chest pain, Denies decreased exercise tolerance, Denies dyspnea on exertion, Denies edema, Denies leg edema, Denies lightheadedness, Denies shortness of breath, Denies syncope Respiratory: Denies cough, Denies cough with sputum, Denies dyspnea, Denies excessive sputum, Denies hemoptysis, Denies home oxygen, Denies wheezing Gastrointestinal: Reports loss of appetite, Denies abdominal pain, Denies diarrhea, Denies nausea, Denies vomiting Genitourinary: Denies dysuria Musculoskeletal: Reports gait dysfunction, Denies frequent falls, Denies myalgias Musculoskeletal: right: knee pain, knee stiffness, knee swelling Integumentary: Reports wounds, Denies pruritus, Denies rash Neurological: Denies aphasia, Denies change in mentation, Denies change in speech, Denies numbness, Denies seizures, Denies weakness Psychiatric: Denies anxiety, Denies depression Endocrine: Denies fatigue, Denies weight change Past Medical History Past Medical History: No Reported History History of Any Multi-Drug Resistant Organisms: None Reported Past Surgical History: Hernia Repair, Orthopedic Surgery Past Psychological History: No Psychological Hx Reported Smoking Status: Current every day smoker Past Alcohol Use History: Occasional Additional Past Alcohol Use History / Comment(s): Patient is a smoker of one pack of cigarettes for over 1-1/2 days since 1984. He denies any marijuana or illicit drug use. He drinks occasional beers. 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 He lives at home with his significant other and 2 dogs. Past Drug Use History: None Reported - Past Family History Mother Family Medical History: Diabetes Mellitus Medications and Allergies Home Medications Medication Instructions Recorded Confirmed Type Acetaminophen Tab [Tylenol Tab] 1,500 mg PO DAILY PRN 02/10/19 02/11/19 History Hydrocodone/Acetaminophen [[place] 1 tab PO Q6HR PRN #12 tab 02/10/19 02/11/19 Rx 5-325] Ketorolac [Toradol] 10 mg PO Q6HR #12 tab 02/10/19 02/11/19 Rx Allergies Allergy/AdvReac Type Severity Reaction Status Date / Time No Known Allergies Allergy Verified 02/11/19 14:33 Physical Exam Vitals: Vital Signs Temp Pulse Pulse Pulse Resp BP BP 02/12/19 07:43 98.5 F 60 15 134/75 02/12/19 01:01 98.0 F 58 L 16 142/77 02/11/19 19:15 58 L 128/69 02/11/19 19:00 66 130/70 02/11/19 18:45 65 135/76 02/11/19 18:30 98.8 F 74 17 104/55 02/11/19 18:15 69 114/66 02/11/19 18:00 77 119/68 02/11/19 17:45 86 159/80 02/11/19 17:30 72 152/79 02/11/19 17:09 66 18 140/77 02/11/19 16:50 59 L 16 140/70 02/11/19 16:35 62 16 134/63 02/11/19 16:20 52 L 16 120/62 02/11/19 16:06 100.2 F H 64 16 125/59 02/11/19 15:15 98 F 69 12 153/75 02/11/19 14:19 86 16 128/79 Pulse Ox 02/12/19 07:43 94 L 02/12/19 01:01 99 02/11/19 19:15 99 02/11/19 19:00 97 02/11/19 18:45 97 02/11/19 18:30 99 02/11/19 18:15 02/11/19 18:00 02/11/19 17:45 02/11/19 17:30 02/11/19 17:09 97 02/11/19 16:50 97 02/11/19 16:35 96 02/11/19 16:20 97 02/11/19 16:06 92 L 02/11/19 15:15 98 02/11/19 14:19 98 Intake and Output 02/11/19 02/12/19 02/12/19 22:59 06:59 14:59 Intake Total 550 120 Output Total 5 990 Balance 545 -990 120 Intake: IV 550 Oral 120 Output: Drainage 40 Right Knee 40 Urine 950 Estimated Blood Loss 5 Other: # Voids 0 Gen: This is a thin 58 year old male. Patient is resting in bed appears to be comfortable and in no acute distress. HEENT: Head is atraumatic, normocephalic. Pupils equal, round. Sclerae is anicteric. Conjunctiva pink. Mucous membranes of the mouth are moist. No thrush noted. NECK: Supple. No JVD. No lymphadenopathy. No thyromegaly. LUNGS: Clear to auscultation. No wheezes or rhonchi. No intercostal retractions. HEART: Regular rate and rhythm. No murmur. ABDOMEN: Soft. Bowel sounds are present. No masses. No tenderness. EXTREMITIES: No pedal edema. No calf tenderness. Dorsalis pedis +2 bilaterally. Patient is a large dressing with [place] wrap to the right knee, AVI drain with serosanguineous drainage. NEUROLOGICAL: Patient is awake, alert and oriented x3. Cranial nerves 2 through 12 are grossly intact. Results Results: Laboratory Results WBC 4.1 k/uL (3.8-10.6) 02/12/19 06:57 RBC 3.68 m/uL (4.30-5.90) L 02/12/19 06:57 Hgb 11.8 gm/dL (13.0-17.5) L 02/12/19 06:57 Hct 35.7 % (39.0-53.0) L 02/12/19 06:57 MCV 97.2 fL (80.0-100.0) 02/12/19 06:57 MCH 32.2 pg (25.0-35.0) 02/12/19 06:57 MCHC 33.1 g/dL (31.0-37.0) 02/12/19 06:57 RDW 13.6 % (11.5-15.5) 02/12/19 06:57 Plt Count 184 k/uL (150-450) 02/12/19 06:57 Neutrophils % 66 % 02/12/19 06:57 Lymphocytes % 18 % 02/12/19 06:57 Monocytes % 11 % 02/12/19 06:57 Eosinophils % 2 % 02/12/19 06:57 Basophils % 1 % 02/12/19 06:57 Neutrophils # 2.7 k/uL (1.3-7.7) 02/12/19 06:57 Lymphocytes # 0.7 k/uL (1.0-4.8) L 02/12/19 06:57 Monocytes # 0.5 k/uL (0-1.0) 02/12/19 06:57 Eosinophils # 0.1 k/uL (0-0.7) 02/12/19 06:57 Basophils # 0.0 k/uL (0-0.2) 02/12/19 06:57 ESR 44 mm/hr (0-15) H 02/12/19 06:57 Sodium 139 mmol/L (137-145) 02/12/19 06:57 Potassium 4.3 mmol/L (3.5-5.1) 02/12/19 06:57 Chloride 109 mmol/L (98-107) H 02/12/19 06:57 Carbon Dioxide 23 mmol/L (22-30) 02/12/19 06:57 Anion Gap 7 mmol/L 02/12/19 06:57 BUN 12 mg/dL (9-20) 02/12/19 06:57 Creatinine 0.68 mg/dL (0.66-1.25) 02/12/19 06:57 Est GFR (CKD-EPI)AfAm >90 (>60 ml/min/1.73 sqM) 02/12/19 06:57 Est GFR (CKD-EPI)NonAf >90 (>60 ml/min/1.73 sqM) 02/12/19 06:57 Glucose 83 mg/dL (74-99) 02/12/19 06:57 Calcium 8.5 mg/dL (8.4-10.2) 02/12/19 06:57 Total Bilirubin 0.9 mg/dL (0.2-1.3) 02/12/19 06:57 AST 11 U/L (17-59) L 02/12/19 06:57 ALT 18 U/L (21-72) L 02/12/19 06:57 Alkaline Phosphatase 73 U/L (38-126) 02/12/19 06:57 C-Reactive Protein 211.5 mg/L (<10.0) H 02/12/19 06:57 Total Protein 5.2 g/dL (6.3-8.2) L 02/12/19 06:57 Albumin 2.9 g/dL (3.5-5.0) L 02/12/19 06:57 CBC & Chem 7: 02/12/19 06:57 02/12/19 06:57 Labs: Abnormal Lab Results - Last 24 Hours (Table) 02/11/19 02/12/19 02/12/19 Range/Units 12:07 06:57 06:57 RBC 3.68 L (4.30-5.90) m/uL Hgb 11.8 L (13.0-17.5) gm/dL Hct 35.7 L (39.0-53.0) % Lymphocytes # 0.7 L (1.0-4.8) k/uL ESR 44 H (0-15) mm/hr Sodium 136 L (137-145) mmol/L Chloride 109 H (98-107) mmol/L Creatinine 0.62 L (0.66-1.25) mg/dL Glucose 106 H (74-99) mg/dL Total Bilirubin 1.6 H (0.2-1.3) mg/dL AST 16 L 11 L (17-59) U/L ALT 19 L 18 L (21-72) U/L C-Reactive Protein 181.6 H 211.5 H (<10.0) mg/L Total Protein 5.9 L 5.2 L (6.3-8.2) g/dL Albumin 2.9 L (3.5-5.0) g/dL Microbiology - Last 24 Hours (Table) 02/11/19 15:45 Gram Stain - Preliminary Knee - Right Wound Culture - Preliminary 02/11/19 15:45 Anaerobic Culture - Preliminary Knee - Right 02/11/19 15:45 Fungal Culture - Preliminary Knee - Right Assessment and Plan Plan: This is a 58-year-old male who presents to hospital with right knee effusion most likely septic arthritis. He is currently on Rocephin and vancomycin. Await culture report. Continue supportive care. Further recommendations as patient progresses. The above dictated assessment and findings were discussed with Dr. Howe. The impression and plan of care have been directed as dictated. Catrachita Dee nurse practitioner acting as scribe for Dr. Howe.
--- NOTE | 2019-02-12 18:05 | P.PN ---
Subjective Progress Note Date: 02/12/19 The patient is a 58-year-old male with a medical history significant for cigarette smoking who presented to the ER 02/10/19 with a large right knee effusion. He underwent aspiration by Dr. Colmenares, and was discharged home on indomethacin as there was low clinical concern for septic arthritis. The patient never had this prescription filled. The patient returned to the ER the following day, 02/11/19 with a recurred knee effusion, and increased pain and an inability to ambulate. The patient was admitted under the care of Dr. Colmenares. Patient underwent a right knee arthroscopy and arthroscopic irrigation and debridement, and partial arthroscopic synovectomy 02/11/[address] Colmenares. At the time of my examination, the patient states his knee pain has significantly improved, although he is still experiencing pain. He is doing well. He denies chest pain, shortness of breath, nausea, vomiting, malaise ,fevers or chills. He denies any new orthopedic complaints today. Objective - Vital Signs Vital signs: Vital Signs Temp 98.5 F 02/12/19 07:43 Pulse 60 02/12/19 07:43 Resp 15 02/12/19 07:43 BP 134/75 02/12/19 07:43 Pulse Ox 94 L 02/12/19 07:43 Intake & Output 02/11/19 02/12/19 02/12/19 18:59 06:59 18:59 Intake Total 550 120 Output Total 5 990 Balance 545 -990 120 Weight 77.111 kg Intake: IV 550 Oral 120 Output: Drainage 40 Right Knee 40 Urine 950 Estimated Blood Loss 5 Other: # Voids 0 - Exam On examination of the right knee, there is a clean, dry, intact dressing in place. Drain is also in place, There is a small amount of serosanguinous drainage present. There is mild tenderness to palpation of the anterior knee. There is mild pain with passive range of motion of the knee. The right lower extremity is warm and well perfused with brisk capillary refill distally. Dorsalis pedis pulse palpable. Motor function and sensation is intact to the right lower extremity. Calves are soft and nontender bilaterally. - Labs CBC & Chem 7: 02/12/19 06:57 02/12/19 06:57 Labs: Abnormal Lab Results - Last 24 Hours (Table) 02/12/19 02/12/19 Range/Units 06:57 06:57 RBC 3.68 L (4.30-5.90) m/uL Hgb 11.8 L (13.0-17.5) gm/dL Hct 35.7 L (39.0-53.0) % Lymphocytes # 0.7 L (1.0-4.8) k/uL ESR 44 H (0-15) mm/hr Chloride 109 H (98-107) mmol/L AST 11 L (17-59) U/L ALT 18 L (21-72) U/L C-Reactive Protein 211.5 H (<10.0) mg/L Total Protein 5.2 L (6.3-8.2) g/dL Albumin 2.9 L (3.5-5.0) g/dL Microbiology - Last 24 Hours (Table) 02/11/19 15:45 Gram Stain - Preliminary Knee - Right Wound Culture - Preliminary 02/11/19 15:45 Anaerobic Culture - Preliminary Knee - Right 02/11/19 15:45 Fungal Culture - Preliminary Knee - Right Assessment and Plan Assessment: Probable septic arthritis right knee, status-post arthroscopic irrigation and debridement. Postoperative day #1. Plan: - Strict nonweightbearing on right lower extremity, crutches for ambulation. Continue physical therapy for gait and balance training. - DVT prophylaxis with Lovenox. Continue current pain control regimen. - Continue with IV antibiotics per infectious disease. We will continue to follow cultures closely. No crystals were seen on synovial fluid aspirated on 02/10/19. - We will plan to leave the drain in until there is less than 10 mLs of output per shift. - Appreciate internal medicine consult for medical management. Patient discussed with Dr. Colmenares.
--- NOTE | 2019-02-12 23:41 | P.CON ---
Consult Note - . Consult date: 02/12/19 Assessment/Plan:: This is a 58-year-old male who gives history that he has had problems with his right knee ever since he fell off a dose or 2 years ago. He has had Guadarrama's cyst surgery but no other surgical interventions on this knee. He isabella quinonez presented to [facility] emergency center on February 10 and was seen by Dr. Colmenares. X-ray of the right knee showed severe arthritic changes and a large effusion. Dr. Colmenares performed aspiration of almost 100 MLS of thick bloody fluid and specimen was sent for cultures and fluid analysis. Sed rate was 11 and C-reactive protein 41.6. WBC was 10.1, lactic acid 1.5, creatinine 0.62. RBCs 91,500, nucleated cells 43 1200, Cherise nuclear cells 93%, mononuclear WBCs 7%. No crystals were seen. Patient was discharged home on [place], Toradol with Hernesto wrap for comfort. He returned to the emergency room the following day due to increased pain and inability to ambulate with worsening pain and swelling. He was again afebrile and white count was 4.1. Sed rate 44 and CRP 211.5. Blood culture from February 10 showing no growth after 24 hours. Fluid culture in process. Patient underwent a right knee arthroscopy and arthroscopic irrigation and debridement, right knee partial arthroscopic synovectomy on February [address] Colmenares. There was a large amount of thick yellow fluid in the knee. Temperature max has been 100.2. He is currently on Rocephin and vancomycin. Please see the consult note is dictated by nurse practitioner Catrachita Luiz. He has noted this 60-year-old male who is of the thin build, presents with ongoing pain and swelling related to his right knee. He has noted he has had difficulty with acne for about 2 years after falling off of a large bulldozer resulting in a right knee injury. She's noted increased swelling to the site and was no longer able to bear weight to the joint. He was seen in emergency center and aspiration occurred. Despite this he again was unable to bear weight the joint and was readmitted and has been seen by orthopedic surgery. Operations of the joint has occurred. Given the findings of a thick material with concerns to infection the consult had been requested. The patient has a markedly elevated CRP and no evidence of crystals within the joint fluid. Antibiotic therapy has been initiated with vancomycin and Rocephin for be continued pending culture results. We discussed with the patient the likelihood of the need for outpatient intravenous antibiotic therapy for treatment of a chronic joint infection. Further data will help define antibiotic choices and course. With the surgical intervention he is feeling slightly better and relates that with draining of the fluid is immense pain has improved. I agree with evaluation, assessment and plan is to the nurse practitioner Mrs. Catrachita Dee.
[2019-02-13] MEDS: VANCOMYCIN 1,500 MG in SODIUM CHLORIDE 0.9% 250 ML IVPB SCH ×3 (00:09→17:04)
[2019-02-13] MEDS: LACTATED RINGERS 1,000 ML IV SCH ×3 (01:27→17:07)
[2019-02-13] MEDS: SODIUM CHLORIDE 0.9% 1,000 ML IV SCH ×2 (01:27→17:08)
[2019-02-13] MEDS ORDERED: VANCOMYCIN TROUGH DUE 1 EACH MISC MISCELLANE ONE (07:00)
[2019-02-13] MEDS: HYDROcodone/APAP 5-325MG 1 EACH TAB PO PRN (08:02)
[2019-02-13] MEDS: ENOXAPARIN 40 MG/0.4 ML SYRINGE SQ SCH (08:03)
[2019-02-13] MEDS: hydrOXYzine PAMOATE 25 MG CAP PO PRN (08:03)
[2019-02-13] MEDS: INDOMETHACIN 25 MG CAP PO SCH ×2 (08:03→21:07)
--- NOTE | 2019-02-13 10:05 | XR ---
EXAMINATION TYPE: XR knee complete LT DATE OF EXAM: 02/13/2019 CLINICAL HISTORY: Left knee swelling and pain TECHNIQUE: Three views of the left knee are obtained. COMPARISON: None. FINDINGS: There is no acute fracture/dislocation evident in left knee. The tri-compartment joint sp aces demonstrate severe joint space narrowing of the medial compartment with [id number] articulatio n and severe joint space narrowing of the patellofemoral compartment with minimal joint space narrowi ng of the lateral compartment. Large protuberant marginal osteophytes are seen with degenerative cyst ic change of the tibia deep to the medial tibial eminence. The overlying soft tissue appears unremar kable. There also appears to be mild diffuse osseous demineralization. Small to moderate suprapatella r joint effusion is suspected. IMPRESSION: 1. No acute fracture or dislocation in the left knee. 2. Extensive tricompartmental arthropathy with [id number] articulation of the medial compartment. 3. Suspected small to moderate suprapatellar joint effusion.
--- NOTE | 2019-02-13 11:39 | P.PN ---
Subjective Progress Note Date: 02/13/19 Principal diagnosis: Right knee effusion Patient was seen and examined. No acute events overnight. Patient reports no changes in his right knee pain. States that his left knee has started to get swollen as well. Objective - Vital Signs Vital signs: Vital Signs Temp 98.1 F 02/13/19 08:51 Pulse 65 02/13/19 08:51 Resp 16 02/13/19 08:51 BP 181/90 02/13/19 08:51 Pulse Ox 97 02/13/19 08:51 Intake & Output 02/12/19 02/13/19 02/13/19 18:59 06:59 18:59 Intake Total 540 350 240 Output Total 50 950 Balance 490 -600 240 Intake: Intake, IV Titration 350 Amount Sodium Chloride 0.9% 1, 350 000 ml @ 100 mls/hr IV . Q10H [facility] Rx#:[id number] Oral 540 240 Output: Drainage 50 Right Knee 50 Urine 950 Other: Voiding Method Urinal # Voids 1 3 - Exam General: [non toxic], [no distress], [appears at stated age] Derm: [warm], [dry] Head: [atraumatic], [normocephalic], [symmetric] Eyes: [EOMI], [no lid lag], [anicteric sclera] Mouth: [no lip lesion], [mucus membranes moist] Cardiovascular: [S1S2 reg], [no murmur], [positive posterior tibial pulse bilateral], Lungs: [CTA bilateral], [no rhonchi, no rales] , [no accessory muscle use] Abdominal: [soft], [ nontender to palpation], [no guarding], [no appreciable organomegaly] Ext: [no gross muscle atrophy], [no edema], [right knee swollen, limited R OM due to pain, wrapped dressing clean dry and intact] Neuro: [no focal neuro deficits] Psych: [Alert], [oriented], [appropriate affect] - Labs CBC & Chem 7: 02/12/19 06:57 02/12/19 06:57 Labs: Microbiology - Last 24 Hours (Table) 02/11/19 17:44 Blood Culture - Preliminary Blood No Growth after 24 hours 02/11/19 15:45 Gram Stain - Preliminary Knee - Right Wound Culture - Preliminary Assessment and Plan Assessment: Assessment and Plan 1. Right knee effusion, possible crystal disease versus septic arthritis 2. Smoker 3. Elevated total bilirubin 1. Patient is afebrile with T-max of 100.2F but no leukocytosis. CRP increased from 41.6-181.6. Knee x-ray from yesterday shows no acute fracture, large suprapatellar joint effusion with increased density of the suprapatellar bursa. Patient is status post arthroscopic debridement POD 2. Plan: Pain control with [place], Dilaudid, indomethacin as needed. Continue vancomycin IV and Rocephin IV. Weightbearing as per orthopedic recommendations. Fall precautions. Follow wound cultures. Follow infectious disease consult. Follow PT consult. 2. Plans: Will offer nicotine patch. 3. Total bilirubin 1.6. Likely not related to obstruction as AST/ALT and alkaline phosphatase is within normal limits. Plans: Resolved. Patient admitted for right knee effusion, status post arthroscopic debridement, cultures pending. Orthopedic surgery and ID is onboard. Cultures are pending. Thank you for this consult. Please call with any additional questions.
--- NOTE | 2019-02-13 18:18 | P.PN ---
Subjective Progress Note Date: 02/13/19 The patient is a 58-year-old male with a medical history significant for cigarette smoking who presented to the ER 02/10/19 with a large right knee effusion. He underwent aspiration by Dr. Colmenares, and was discharged home on indomethacin as there was low clinical concern for septic arthritis. The patient never had this prescription filled. The patient returned to the ER the following day, 02/11/19 with a recurred knee effusion, and increased pain and an inability to ambulate. The patient was admitted under the care of Dr. Colmenares. Patient underwent a right knee arthroscopy and arthroscopic irrigation and debridement, and partial arthroscopic synovectomy 02/11/[address] Colmenares. 02/13/19: Patient continues to experience improving symptoms of the right knee. He complains of mild left knee pain today, he also has noticed swelling of the left knee. He denies any new injuries overnight. He denies fevers, chills, malaise, nausea, vomiting. He states he overall feels well. Objective - Vital Signs Vital signs: Vital Signs Temp 98.1 F 02/13/19 08:51 Pulse 65 02/13/19 08:51 Resp 16 02/13/19 08:51 BP 181/90 02/13/19 08:51 Pulse Ox 97 02/13/19 08:51 Intake & Output 02/12/19 02/13/19 02/13/19 18:59 06:59 18:59 Intake Total 540 350 Output Total 50 950 Balance 490 -600 Intake: Intake, IV Titration 350 Amount Sodium Chloride 0.9% 1, 350 000 ml @ 100 mls/hr IV . Q10H [facility] Rx#:[id number] Oral 540 Output: Drainage 50 Right Knee 50 Urine 950 Other: Voiding Method Urinal # Voids 1 3 - Exam On examination of the right knee, there is a clean, dry, intact dressing in place. Dressing taken down and reveals two benign incisions of the anterior knee. Drain is also in place, There is a small amount of serosanguinous drainage present. There is mild tenderness to palpation of the anterior knee. There is mild pain with passive range of motion of the knee. The right lower extremity is warm and well perfused with brisk capillary refill distally. Dorsalis pedis pulse palpable. Motor function and sensation is intact to the right lower extremity. On inspection of the left knee, there is a moderate effusion. No pain with PROM. No pain on palpation of the left knee. No erythema, warmth. Calves are soft and nontender bilaterally. - Labs CBC & Chem 7: 02/12/19 06:57 02/12/19 06:57 Labs: Microbiology - Last 24 Hours (Table) 02/11/19 17:44 Blood Culture - Preliminary Blood No Growth after 24 hours 02/11/19 15:45 Gram Stain - Preliminary Knee - Right Wound Culture - Preliminary Assessment and Plan Assessment: Probable septic arthritis right knee, status-post arthroscopic irrigation and debridement. Postoperative day #2. Left knee effusion Plan: - Strict nonweightbearing on right lower extremity, crutches for ambulation. Continue physical therapy for gait and balance training. - DVT prophylaxis with Lovenox. Continue current pain control regimen. - Continue with IV antibiotics per infectious disease. We will continue to follow cultures closely. No crystals were seen on synovial fluid aspirated on 02/10/19. - We will plan to leave the drain in until there is less than 10 mLs of output per shift. - In regards to the new left knee effusion, we will plan to perform a bedside aspiration of the left knee this afternoon with Dr. Colmenares. - Appreciate internal medicine consult for medical management. Patient discussed with Dr. Colmenares.
--- NOTE | 2019-02-13 18:43 | P.PN ---
Subjective Progress Note Date: 02/13/19 Umesh is doing well in regards to his right knee. His pain and swelling is improved. Cultures have been negative to date. He has developed swelling and mild pain in the left knee. Objective - Vital Signs Vital signs: Vital Signs Temp 98.1 F 02/13/19 08:51 Pulse 65 02/13/19 08:51 Resp 16 02/13/19 08:51 BP 181/90 02/13/19 08:51 Pulse Ox 97 02/13/19 08:51 Intake & Output 02/12/19 02/13/19 02/13/19 18:59 06:59 18:59 Intake Total 540 350 840 Output Total 50 950 Balance 490 -600 840 Intake: Intake, IV Titration 350 Amount Sodium Chloride 0.9% 1, 350 000 ml @ 100 mls/hr IV . Q10H [facility] Rx#:[id number] Oral 540 840 Output: Drainage 50 Right Knee 50 Urine 950 Other: Voiding Method Urinal # Voids 1 3 2 - Exam On examination of the right knee the dressing was taken down. There is mild swelling diffusely about the knee. There is minimal effusion. There is a small amount of blood-tinged drainage and the tubing and canister. He has mild discomfort with passive range of the knee but is significantly improved. His incisions are healing. On examination of the left knee there is a moderate to large effusion. He has mild warmth about the knee. He has discomfort with passive range of motion. - Labs CBC & Chem 7: 02/12/19 06:57 02/12/19 06:57 Labs: Microbiology - Last 24 Hours (Table) 02/11/19 15:45 Anaerobic Culture - Preliminary Knee - Right 02/11/19 15:45 Gram Stain - Final Knee - Right Wound Culture - Final 02/11/19 17:44 Blood Culture - Preliminary Blood No Growth after 24 hours Assessment and Plan Plan: Regards to patient's right knee has cultures have been negative to date. Clinically he has improved. We're going to leave the drain in for another 24 hours as it is still having output. In regards to the left knee and aspiration was performed. 50 mL's of yellow, clear fluid was aspirated. The fluid was sent to the lab for Gram stain, cultures, cell count, and crystal analysis. We will continue to await cultures of both knees. The left knee aspirate looks more consistent with crystalline arthropathy then septic arthritis. Time with Patient: Greater than 30
[2019-02-13 20:31] LABS: Appearance,BF Cloudy; Color,BF Yellow
[2019-02-13 20:32] LABS: Nucleated Cells, Body Fluid 6900 /uL; RBC, Body Fluid 450 /uL
[2019-02-13 20:33] LABS: Mononuclear WBC,Body Fluid 17 %; Polynuclear WBC,Body Fluid 83 %; Total Cells Counted,Body Fluid 100
--- NOTE | 2019-02-13 22:40 | P.PN ---
Subjective Progress Note Date: 02/13/19 This is a 58-year-old male who gives history that he has had problems with his right knee ever since he fell off a dose or 2 years ago. He has had Guadarrama's cyst surgery but no other surgical interventions on this knee. He initially presented to [facility] emergency center on February 10 and was seen by Dr. Colmenares. X-ray of the right knee showed severe arthritic changes and a large effusion. Dr. Colmenares performed aspiration of almost 100 MLS of thick bloody fluid and specimen was sent for cultures and fluid analysis. Sed rate was 11 and C-reactive protein 41.6. WBC was 10.1, lactic acid 1.5, creatinine 0.62. RBCs 91,500, nucleated cells 43 1200, Cherise nuclear cells 93%, mononuclear WBCs 7%. No crystals were seen. Patient was discharged home on [place], Toradol with Hernesto wrap for comfort. He returned to the emergency room the following day due to increased pain and inability to ambulate with worsening pain and swelling. He was again afebrile and white count was 4.1. Sed rate 44 and CRP 211.5. Blood culture from February 10 showing no growth after 24 hours. Fluid culture in process. Patient underwent a right knee arthroscopy and arthroscopic irrigation and debridement, right knee partial arthroscopic synovectomy on February [address] Colmenares. There was a large amount of thick yellow fluid in the knee. Temperature max has been 100.2. He is currently on Rocephin and vancomycin. 02/13/2019 patient is now developed the significant swelling to the left knee with evidence of the extensive degenerative joint changes on the x-ray that was obtained. He will be seen by orthopedics and likely have aspiration of that joint. Cultures and crystal analysis to be sent to the laboratory. The right knee cultures are all negative at this point in time. He is feeling better and will have the drainage tubes removed tomorrow. Objective - Vital Signs Vital signs: Vital Signs Temp 98.1 F 02/13/19 08:51 Pulse 65 02/13/19 08:51 Resp 16 02/13/19 08:51 BP 181/90 02/13/19 08:51 Pulse Ox 97 02/13/19 08:51 Intake & Output 02/13/19 02/13/19 02/14/19 06:59 18:59 06:59 Intake Total 350 840 Output Total 950 Balance -600 840 Intake: Intake, IV Titration 350 Amount Sodium Chloride 0.9% 1, 350 000 ml @ 100 mls/hr IV . Q10H [facility] Rx#:[id number] Oral 840 Output: Urine 950 Other: Voiding Method Urinal # Voids 3 2 - Exam Gen: This is a thin 58 year old male. Patient is resting in bed appears to be comfortable and in no acute distress. HEENT: Head is atraumatic, normocephalic. Pupils equal, round. Sclerae is anicteric. Conjunctiva pink. Mucous membranes of the mouth are moist. No thrush noted. NECK: Supple. No JVD. No lymphadenopathy. No thyromegaly. LUNGS: Clear to auscultation. No wheezes or rhonchi. No intercostal retractions. HEART: Regular rate and rhythm. No murmur. ABDOMEN: Soft. Bowel sounds are present. No masses. No tenderness. EXTREMITIES: No pedal edema. No calf tenderness. Dorsalis pedis +2 bilaterally. Patient is a large dressing with Hernesto wrap to the right knee, AVI drain with serosanguineous drainage. The left knee has now developed evidence of any effusion this is mildly tender. NEUROLOGICAL: Patient is awake, alert and oriented x3. - Labs CBC & Chem 7: 02/12/19 06:57 02/12/19 06:57 Labs: Microbiology - Last 24 Hours (Table) 02/11/19 17:44 Blood Culture - Preliminary Blood No Growth after 48 hours 02/11/19 15:45 Anaerobic Culture - Preliminary Knee - Right 02/11/19 15:45 Gram Stain - Final Knee - Right Wound Culture - Final Laboratory Results WBC 4.1 k/uL (3.8-10.6) 02/12/19 06:57 RBC 3.68 m/uL (4.30-5.90) L 02/12/19 06:57 Hgb 11.8 gm/dL (13.0-17.5) L 02/12/19 06:57 Hct 35.7 % (39.0-53.0) L 02/12/19 06:57 MCV 97.2 fL (80.0-100.0) 02/12/19 06:57 MCH 32.2 pg (25.0-35.0) 02/12/19 06:57 MCHC 33.1 g/dL (31.0-37.0) 02/12/19 06:57 RDW 13.6 % (11.5-15.5) 02/12/19 06:57 Plt Count 184 k/uL (150-450) 02/12/19 06:57 Neutrophils % 66 % 02/12/19 06:57 Lymphocytes % 18 % 02/12/19 06:57 Monocytes % 11 % 02/12/19 06:57 Eosinophils % 2 % 02/12/19 06:57 Basophils % 1 % 02/12/19 06:57 Neutrophils # 2.7 k/uL (1.3-7.7) 02/12/19 06:57 Lymphocytes # 0.7 k/uL (1.0-4.8) L 02/12/19 06:57 Monocytes # 0.5 k/uL (0-1.0) 02/12/19 06:57 Eosinophils # 0.1 k/uL (0-0.7) 02/12/19 06:57 Basophils # 0.0 k/uL (0-0.2) 02/12/19 06:57 ESR 44 mm/hr (0-15) H 02/12/19 06:57 Sodium 139 mmol/L (137-145) 02/12/19 06:57 Potassium 4.3 mmol/L (3.5-5.1) 02/12/19 06:57 Chloride 109 mmol/L (98-107) H 02/12/19 06:57 Carbon Dioxide 23 mmol/L (22-30) 02/12/19 06:57 Anion Gap 7 mmol/L 02/12/19 06:57 BUN 12 mg/dL (9-20) 02/12/19 06:57 Creatinine 0.68 mg/dL (0.66-1.25) 02/12/19 06:57 Est GFR (CKD-EPI)AfAm >90 (>60 ml/min/1.73 sqM) 02/12/19 06:57 Est GFR (CKD-EPI)NonAf >90 (>60 ml/min/1.73 sqM) 02/12/19 06:57 Glucose 83 mg/dL (74-99) 02/12/19 06:57 Calcium 8.5 mg/dL (8.4-10.2) 02/12/19 06:57 Total Bilirubin 0.9 mg/dL (0.2-1.3) 02/12/19 06:57 AST 11 U/L (17-59) L 02/12/19 06:57 ALT 18 U/L (21-72) L 02/12/19 06:57 Alkaline Phosphatase 73 U/L (38-126) 02/12/19 06:57 C-Reactive Protein 211.5 mg/L (<10.0) H 02/12/19 06:57 Total Protein 5.2 g/dL (6.3-8.2) L 02/12/19 06:57 Albumin 2.9 g/dL (3.5-5.0) L 02/12/19 06:57 Fluid Source Synovial 02/13/19 18:30 Fluid Color Yellow 02/13/19 18:30 Fluid Appearance Cloudy 02/13/19 18:30 Fluid RBC 450 /uL 02/13/19 18:30 Fluid Nucleated Cells 6900 /uL 02/13/19 18:30 Fluid Polynuclear WBCs 83 % 02/13/19 18:30 Fluid Mononuclear WBCs 17 % 02/13/19 18:30 Vancomycin Trough 17.1 ug/mL 02/13/19 07:30 Microbiology 02/13/19 18:30 Knee - Left Body Fluid Culture - Preliminary 02/11/19 17:44 Blood Blood Culture - Preliminary No Growth after 48 hours 02/11/19 15:45 Knee - Right Anaerobic Culture - Preliminary 02/11/19 15:45 Knee - Right Gram Stain - Final 02/11/19 15:45 Knee - Right Wound Culture - Final 02/11/19 15:45 Knee - Right Fungal Culture - Preliminary Assessment and Plan (1) Arthritis of right knee Narrative/Plan: 60-year-old male who is of the thin build, presents with ongoing pain and swelling related to his right knee. He has noted he has had difficulty with acne for about 2 years after falling off of a large bulldozer resulting in a right knee injury. She's noted increased swelling to the site and was no longer able to bear weight to the joint. He was seen in emergency center and aspiratio n occurred. Despite this he again was unable to bear weight the joint and was readmitted and has been seen by orthopedic surgery. Operations of the joint has occurred. Given the findings of a thick material with concerns to infection the consult had been requested. The patient has a markedly elevated CRP and no evidence of crystals within the joint fluid. Antibiotic therapy has been initiated with vancomycin and Rocephin for be continued pending culture results. We discussed with the patient the likelihood of the need for outpatient intravenous antibiotic therapy for treatment of a chronic joint infection. Further data will help define antibiotic choices and course. With the surgical intervention he is feeling slightly better and relates that with draining of the fluid is immense pain has improved. 02/13/2019 the patient is now felt some effusion to the left knee. He'll be seen by orthopedics and likely this will be aspirated. Evaluation for crystals is requested. With the current status and acute crystalline arthropathy whether this is gout or pseudogout is of concern. The cultures are all negative from the prior aspiration as well of the surgical drainage of the right knee. The patient is feeling slightly better. We discussed that information is still not completely clear and he may require outpatient intravenous antibiotic therapy depending on the culture results over the next short period of time. If the left knee clarifies a crystalline arthropathy, with an adequate explanation for the markedly elevated inflammatory parameters. The next 24 hours we'll de termine the course of therapy. Current Visit: No Status: Acute Code(s): M17.11 - UNILATERAL PRIMARY OSTEOARTHRITIS, RIGHT KNEE SNOMED Code(s): 297713074 (2) Effusion of left knee Current Visit: Yes Status: Acute Code(s): M25.462 - EFFUSION, LEFT KNEE SNOMED Code(s): 483915117609700 (3) Effusion, right knee Current Visit: Yes Status: Acute Code(s): M25.461 - EFFUSION, RIGHT KNEE SNOMED Code(s): 917907054
[2019-02-14] MEDS: VANCOMYCIN 1,500 MG in SODIUM CHLORIDE 0.9% 250 ML IVPB SCH ×4 (00:06→23:22)
[2019-02-14] MEDS: LACTATED RINGERS 1,000 ML IV SCH ×2 (04:22→17:55)
[2019-02-14] MEDS: SODIUM CHLORIDE 0.9% 1,000 ML IV SCH ×3 (04:22→21:59)
--- NOTE | 2019-02-14 09:18 | P.PN ---
Subjective Progress Note Date: 02/14/19 Principal diagnosis: bilateral knee swelling, rule out septic arthritis Patient was seen and examined. No acute events overnight. Underwent left knee arthrocentesis yesterday. Complains of 7 out of 10 pain in his right knee. Complaints are unchanged since admission. He denies any chest pain, shortness of breath or palpitations. Complaining of generalized weakness. Objective - Vital Signs Vital signs: Vital Signs Temp 98.3 F 02/14/19 07:35 Pulse 55 L 02/14/19 07:35 Resp 16 02/14/19 07:35 BP 175/97 02/14/19 07:35 Pulse Ox 97 02/14/19 07:35 Intake & Output 02/13/19 02/14/19 02/14/19 18:59 06:59 18:59 Intake Total 840 1200 Output Total 38 Balance 840 1162 Intake: Intake, IV Titration 1200 Amount Sodium Chloride 0.9% 1, 950 000 ml @ 100 mls/hr IV . Q10H [facility] Rx#:[id number] Vancomycin 1,500 mg In 250 Sodium Chloride 0.9% 250 ml @ 125 mls/hr IVPB Q8HR [facility] Rx#:[id number] Oral 840 Output: Drainage 35 Right Knee 35 Urine 3 Other: Voiding Method Urinal # Voids 2 4 - Exam General: [non toxic], [no distress], [appears at stated age] Derm: [warm], [dry] Head: [atraumatic], [normocephalic], [symmetric] Eyes: [EOMI], [no lid lag], [anicteric sclera] Mouth: [no lip lesion], [mucus membranes moist] Cardiovascular: [S1S2 reg], [no murmur], [positive DP pulse bilateral] Lungs: [CTA bilateral], [no rhonchi, no rales] , [no accessory muscle use] Abdominal: [soft], [ nontender to palpation], [no guarding], [no appreciable organomegaly] Ext: [no gross muscle atrophy], [no edema], [right knee swollen, limited R OM due to pain, wrapped dressing clean dry and intact], [left knee suprapatellar e ffusion] Neuro: [no focal neuro deficits] Psych: [Alert], [oriented], [appropriate affect] - Labs CBC & Chem 7: 02/12/19 06:57 02/14/19 07:19 Labs: Abnormal Lab Results - Last 24 Hours (Table) 02/14/19 Range/Units 07:19 Creatinine 0.64 L (0.66-1.25) mg/dL Microbiology - Last 24 Hours (Table) 02/13/19 18:30 Gram Stain - Preliminary Knee - Left Body Fluid Culture - Preliminary 02/11/19 17:44 Blood Culture - Preliminary Blood No Growth after 48 hours 02/11/19 15:45 Anaerobic Culture - Preliminary Knee - Right 02/11/19 15:45 Gram Stain - Final Knee - Right Wound Culture - Final Assessment and Plan Assessment: Assessment and Plan 1. Bilateral knee effusion, possible crystal disease versus septic arthritis 2. Smoker 3. Elevated total bilirubin 1. Patient is afebrile with T-max of 100.2F but no leukocytosis. CRP increased from 41.6-181.6. Knee x-ray shows no acute fracture, large suprapatellar joint effusion with increased density of the suprapatellar bursa. Patient is status post R knee arthroscopic debridement POD 3. He is POD 1 aspiration of left knee, cytology pointing away from septic arthritis in the left knee with no crystals seen. PT recommended DC home with home PT versus DONNIE. Plan: Pain control with [place], Dilaudid, indomethacin as needed. Continue vancomycin IV and Rocephin IV. Weightbearing as per orthopedic recommendations. Fall precautions. Follow wound cultures. Follow infectious disease consult. Follow PT consult. 2. Plans: Will offer nicotine patch. 3. Total bilirubin 1.6. Likely not related to obstruction as AST/ALT and alkaline phosphatase is within normal limits. Plans: Resolved. Patient admitted for right knee effusion, status post arthroscopic debridement, cultures pending. Orthopedic surgery and ID is onboard. Thank you for this consult. Please call with any additional questions.
[2019-02-14] MEDS: ENOXAPARIN 40 MG/0.4 ML SYRINGE SQ SCH (10:20)
[2019-02-14] MEDS: INDOMETHACIN 25 MG CAP PO SCH ×2 (10:21→20:28)
[2019-02-14 10:52] LABS: Basophils % (A) 1 %; Eosinophils # (A) 0.1 k/uL (0-0.7); Eosinophils % (A) 4 %; HCT 35.4 % (39.0-53.0); HGB 11.5 gm/dL (13.0-17.5); Lymphocytes # (A) 0.7 k/uL (1.0-4.8); Lymphocytes % (A) 33 %; MCH 31.7 pg (25.0-35.0); MCHC 32.5 g/dL (31.0-37.0); MCV 97.5 fL (80.0-100.0); Mean Platelet Volume 7.9; Monocytes # (A) 0.2 k/uL (0-1.0); Monocytes % (A) 11 %; Neutrophils # (A) 1.1 k/uL (1.3-7.7); Neutrophils % (A) 49 %; Platelet Count 215 k/uL (150-450); RBC 3.63 m/uL (4.30-5.90); RDW 13.1 % (11.5-15.5); WBC 2.3 k/uL (3.8-10.6)
[2019-02-14 11:37] LABS: Erythrocyte Sedimentation Rate 74 mm/hr (0-15)
--- NOTE | 2019-02-14 12:18 | P.PN ---
Subjective Progress Note Date: 02/14/19 The patient is a 58-year-old male with a medical history significant for cigarette smoking who presented to the ER 02/10/19 with a large right knee effusion. He underwent aspiration by Dr. Colmenares, and was discharged home on indomethacin as there was low clinical concern for septic arthritis. The patient never had this prescription filled. The patient returned to the ER the following day, 02/11/19 with a recurred knee effusion, and increased pain and an inability to ambulate. The patient was admitted under the care of Dr. Colmenares. Patient underwent a right knee arthroscopy and arthroscopic irrigation and debridement, and partial arthroscopic synovectomy 02/11/[address] Colmenares. 02/14/19: Patient states he overall feels well today. He states his left knee feels better after it was aspirated yesterday afternoon, although he never was experiencing significant pain. He is not experiencing pain in the left knee currently. He states his right knee symptoms continue to improve. He denies fevers, chills, malaise, nausea, vomiting. He has no new complaints today. Vital signs stable. Objective - Vital Signs Vital signs: Vital Signs Temp 98.3 F 02/14/19 07:35 Pulse 55 L 02/14/19 07:35 Resp 16 02/14/19 07:35 BP 175/97 02/14/19 07:35 Pulse Ox 97 02/14/19 07:35 Intake & Output 02/13/19 02/14/19 02/14/19 18:59 06:59 18:59 Intake Total 840 1200 Output Total 38 Balance 840 1162 Intake: Intake, IV Titration 1200 Amount Sodium Chloride 0.9% 1, 950 000 ml @ 100 mls/hr IV . Q10H [facility] Rx#:[id number] Vancomycin 1,500 mg In 250 Sodium Chloride 0.9% 250 ml @ 125 mls/hr IVPB Q8HR [facility] Rx#:[id number] Oral 840 Output: Drainage 35 Right Knee 35 Urine 3 Other: Voiding Method Urinal # Voids 2 4 - Exam On examination of the right knee, there is a clean, dry, intact dressing in place. Dressing taken down and reveals two benign incisions of the anterior knee. Drain is also in place, There is a small amount of serosanguinous drainage present. Drain is removed and reveals a benign drain site. There is mild tenderness to palpation of the anterior knee. There is mild pain with passive range of motion of the knee. The right lower extremity is warm and well perfused with brisk capillary refill distally. Dorsalis pedis pulse palpable. Motor function and sensation is intact to the right lower extremity. On inspection of the left knee, there is a mild effusion. No pain with PROM. No pain on palpation of the left knee. No erythema, warmth. Calves are soft and nontender bilaterally. - Labs CBC & Chem 7: 02/14/19 07:02/14/19 07:19 Labs: Abnormal Lab Results - Last 24 Hours (Table) 02/14/19 02/14/19 02/14/19 Range/Units 07:19 07: 07: WBC 2.3 L (3.8-10.6) k/uL RBC 3.63 L (4.30-5.90) m/uL Hgb 11.5 L (13.0-17.5) gm/dL Hct 35.4 L (39.0-53.0) % Neutrophils # 1.1 L (1.3-7.7) k/uL Lymphocytes # 0.7 L (1.0-4.8) k/uL ESR 74 H (0-15) mm/hr Creatinine 0.64 L (0.66-1.25) mg/dL C-Reactive Protein 137.6 H (<10.0) mg/L Microbiology - Last 24 Hours (Table) 02/13/19 18:30 Gram Stain - Preliminary Knee - Left Body Fluid Culture - Preliminary 02/11/19 17:44 Blood Culture - Preliminary Blood No Growth after 48 hours 02/11/19 15:45 Anaerobic Culture - Preliminary Knee - Right 02/11/19 15:45 Gram Stain - Final Knee - Right Wound Culture - Final Assessment and Plan Assessment: 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 Postoperative day #3. Left knee effusion Plan: - Strict nonweightbearing on right lower extremity, crutches for ambulation. Continue physical therapy for gait and balance training. - DVT prophylaxis with Lovenox. Continue current pain control regimen. - Continue with IV antibiotics per infectious disease. We will continue to follow cultures closely, currently negative for any growth. No crystals were seen on right knee synovial fluid aspirated on 02/10/19. - In regards to the new left knee effusion, left knee synovial fluid aspirated 02/13/19 also negative for crystals. We will follow these cultures closely. - CRP 137.6 today, decreased from last CRP of 211.5 drawn on 02/12/19. - Appreciate internal medicine consult for medical management. Patient discussed with Dr. Colmenares.
[2019-02-15] MEDS: LACTATED RINGERS 1,000 ML IV SCH (00:58)
[2019-02-15 08:34] VITALS: BP 194/93; PULSE 104; RESP 15; TEMP 98.8
[2019-02-15] MEDS: VANCOMYCIN 1,500 MG in SODIUM CHLORIDE 0.9% 250 ML IVPB SCH (09:26)
[2019-02-15] MEDS: ENOXAPARIN 40 MG/0.4 ML SYRINGE SQ SCH (09:27)
[2019-02-15] MEDS: INDOMETHACIN 25 MG CAP PO SCH (09:29)
[2019-02-15] MEDS: SODIUM CHLORIDE 0.9% 1,000 ML IV SCH (09:42)
--- NOTE | 2019-02-15 15:35 | P.DS ---
Providers Date of admission: 02/12/19 08:35 Expected date of discharge: 02/15/19 Attending physician: Angelito Colmenares Consults: 02/11/19 16:09 Consult Physician Routine Consulting Provider: Lupillo Howe Consult Reason/Comments: Possible right knee septic arthritis Do you want consulting provider notified?: Yes 02/11/19 16:16 Consult Physician Routine Consulting Provider: Dede Hyde Consult Reason/Comments: Medical management Do you want consulting provider notified?: Yes Primary care physician: Stated None Hospital Course: This patient is a 58- year old male with a history significant for cigarette smoking that presented to the [facility] ED on 02/10/19 for right knee pain and effusion. Dr. Colmenares performed an aspiration of the knee and the patient was discharged home, as there was low clinical concern for septic arthritis. The patient then presented to [facility] ED the following day, on 02/11/19 with complaints of increasing right knee pain. Therefore, patient was admitted under the care of Dr. Colmenares, and underwent a right knee arthroscopic irrigation and debridement on 02/11/19. On 02/13/19, the patient was found to have a new left knee effusion. Patient underwent a bedside left knee aspiration on 02/13/19. Synovial fluid sent for analysis from the left and right knee are negative for crystals and cultures are also negative to date. There was also low concern for an occult fracture, as there was no trauma and x-rays of the right and left knees were negative. Consults were placed to infectious disease and internal medicine during the patient's hospital stay. The procedure was performed without complications or sequelae. The patient is doing well postoperatively. Vital signs and labs are stable on postoperative day #4. Patient was examined bedside today. He continues to improve clinically. He describes minimal pain in the right knee, and no pain in the left knee. He has been using the crutches for ambulation, and remaining non weight bearing on the right leg. He denies nausea, vomiting, fevers, chills, or malaise. On examination, the patient is sitting up in bed in no apparent distress. He is alert and orientated x3. On inspection of the right knee, dressing is clean, dry, and intact. Dressing is taken down and reveals benign appearing incisions. There is no active drainage, there is no surrounding erythema, warmth, or signs of infection. There is no pain on PROM of the knee. The right lower extremity is warm and well perfused, with brisk capillary refill distally. Motor and sensory function is intact. On inspection of the left knee, there is minimal effusion. There is no erythema, warmth of the knee. There is no pain with PROM of the left knee. The left lower extremity is warm and well perfused with brisk capillary refill. Calves are soft and non tender bilaterally. Patient is discharged home in fair condition, pending medical clearance. Patient will follow up with Dr. Colmenares in the office in 1 week. Please see [facility] rec for accurate list of discharge medications. Patient Condition at Discharge: Fair Plan - Discharge Summary Discharge Rx Participant: Yes New Discharge Prescriptions: New Aspirin 325 mg PO DAILY #14 tab Docusate [Colace] 100 mg PO BID #60 capsule predniSONE 20 mg PO DIRECTED #26 tab traMADol HCL [Ultram] 50 mg PO Q6HR PRN 7 Days #28 tab PRN Reason: Pain No Action Acetaminophen Tab [Tylenol Tab] 1,500 mg PO DAILY PRN PRN Reason: Pain Ketorolac [Toradol] 10 mg PO Q6HR #12 tab Discharge Medication List Acetaminophen Tab [Tylenol Tab] 1,500 mg PO DAILY PRN 02/10/19 [History] Ketorolac [Toradol] 10 mg PO Q6HR #12 tab 02/10/19 [Rx] Aspirin 325 mg PO DAILY #14 tab 02/15/19 [Rx] Docusate [Colace] 100 mg PO BID #60 capsule 02/15/19 [Rx] predniSONE 20 mg PO DIRECTED #26 tab 02/15/19 [Rx] traMADol HCL [Ultram] 50 mg PO Q6HR PRN 7 Days #28 tab 02/15/19 [Rx] Follow up Appointment(s)/Referral(s): None,Stated [Primary Care Provider] - 1-2 days Angelito Colmenares MD [Medical Doctor] - 02/23/19 9:15 am Patient Instructions/Handouts: Incision and Drainage (DC) Activity/Diet/Wound Care/Special Instructions: - Non-weightbearing on your right leg. Use crutches for ambulation. - Daily dressing changes of the right knee. Do not get your right knee wet in the shower. - Take pain medications as prescribed. Take Colace as a stool softener. Take aspirin for DVT prophylaxis. Take prednisone as prescribed. - Follow up in the office in [address] Colmenares. - Call the office with any questions or concerns, Discharge Disposition: HOME SELF-CARE
--- NOTE | 2019-02-15 17:32 | P.PN ---
Subjective Progress Note Date: 02/15/19 (delayed charting patient seen at 1130) Principal diagnosis: Right knee swelling Patient is a 58-year-old male history of tobacco abuse who presented with a large right knee effusion. There is concern for possible septic arthritis versus crystal deposition. He had already had drainage in the ER and this had recurred along with an increasing ESR patient was therefore admitted. Culture negative, crystal negative. Patient seen and examined at bedside. Pain is well controlled. Denies any chest pain, shortness of breath, nausea, or vomiting. Objective - Vital Signs Vital signs: Vital Signs Temp 98.8 F 02/15/19 07:41 Pulse 104 H 02/15/19 07:41 Resp 15 02/15/19 07:41 BP 194/93 02/15/19 07:41 Pulse Ox 99 02/15/19 07:41 Intake & Output 02/14/19 02/15/19 02/15/19 18:59 06:59 18:59 Intake Total 400 1390 240 Output Total 1200 1300 Balance -800 90 240 Intake: Intake, IV Titration 800 Amount Lactated Ringers 1,000 ml 800 @ 100 mls/hr IV .Q10H [facility] Rx#:[id number] Oral 400 590 240 Output: Urine 1200 1300 Other: Voiding Method Urinal Urinal # Voids 3 - Exam General: non toxic, no distress, appears at stated age Derm: warm, dry Head: atraumatic, normocephalic, symmetric Eyes: EOMI, no lid lag, anicteric sclera Mouth: no lip lesion, mucus membranes moist Cardiovascular: S1S2 reg, no murmur, positive posterior tibial pulse bilateral, Lungs: CTA bilateral, no rhonchi, no rales , no accessory muscle use Psych: Alert, oriented, withdrawan - Labs CBC & Chem 7: 02/14/19 07:19 02/14/19 07:19 Labs: Microbiology - Last 24 Hours (Table) 02/11/19 17:44 Blood Culture - Preliminary Blood No Growth after 72 hours 02/11/19 15:45 Anaerobic Culture - Preliminary Knee - Right Assessment and Plan Assessment: Right knee effusion -Status post arthrocentesis -No crystals visualized on exam -White blood cell count 6900 -Gram stain without any growth -X-ray without acute fracture or dislocation Elevated bilirubin, resolved Tobacco abuse -Cessation encouraged Medically stable for discharge at the discretion of orthopedics
[2019-02-16] MEDS ORDERED: VANCOMYCIN TROUGH DUE 1 EACH MISC MISCELLANE ONE (07:00)
== END 2019-02-15 13:50 | disposition home or self-care (01) | DRG 489 ==
LOC: EC 10:41 → 4SSUR 14:31 → OBSVTOIN 02-12 08:35
PROVIDERS: ADMIT Orthopaedic Surgery; ATTEND Orthopaedic Surgery
PROC: 0SBC4ZZ Excision of Right Knee Joint, Percutaneous Endoscopic Approach (ICD-10-PCS; 2019-02-11)
PROC: 3E1U38X Irrigation of Joints using Irrigating Substance, Percutaneous Approach, Diagnostic (ICD-10-PCS; 2019-02-11)
PROC: 0SBC4ZZ Excision of Right Knee Joint, Percutaneous Endoscopic Approach (ICD-10-PCS; principal; 2019-02-11 15:00)
PROC: 0S9D3ZX Drainage of Left Knee Joint, Percutaneous Approach, Diagnostic (ICD-10-PCS; 2019-02-13)
DX: M00.9 Pyogenic arthritis, unspecified (principal); M17.11 Unilateral primary osteoarthritis, right knee; F17.210 Nicotine dependence, cigarettes, uncomplicated; E80.6 Other disorders of bilirubin metabolism; Z83.3 Family history of diabetes mellitus; Z79.899 Other long term (current) drug therapy; M25.462 Effusion, left knee; M25.461 Effusion, right knee
CPT/HCPCS: 36415; 80053; 80202; 82565; 85025; 85652; 86140; 87040; 87070; 87075; 87102; 87205; 89050; 89060; 96360; 96361; 96372; 99284

== ENCOUNTER → 2019-05-31 | Outpatient (CLI) | payer BC ==
[2019-05-31 18:06] LABS: Appearance,Urine Clear (Clear); Basophils # (A) 0.1 k/uL (0-0.2); Basophils % (A) 1 %; Bilirubin,Urine Negative (Negative); Blood,Urine Negative (Negative); Color,Urine Yellow; Eosinophils # (A) 0.2 k/uL (0-0.7); Eosinophils % (A) 3 %; Glucose,Urine (UA) Negative (Negative); HCT 50.3 % (39.0-53.0); HGB 16.8 gm/dL (13.0-17.5); Ketones,Urine Negative (Negative); Leukocyte Esterase,Urine Negative (Negative); Lymphocytes # (A) 1.9 k/uL (1.0-4.8); Lymphocytes % (A) 30 %; MCH 32.3 pg (25.0-35.0); MCHC 33.4 g/dL (31.0-37.0); MCV 96.6 fL (80.0-100.0); Mean Platelet Volume 6.5; Monocytes # (A) 0.4 k/uL (0-1.0); Monocytes % (A) 6 %; Neutrophils # (A) 3.8 k/uL (1.3-7.7); Neutrophils % (A) 58 %; Nitrite,Urine Negative (Negative); PH, Urine 5.5 (5.0-8.0); Platelet Count 347 k/uL (150-450); Protein,Urine Negative (Negative); RDW 13.9 % (11.5-15.5); Specific Gravity,Urine 1.021 (1.001-1.035); WBC 6.4 k/uL (3.8-10.6)
[2019-05-31 18:13] LABS: INR 0.9 (<1.2); Partial Thromboplastin Time 27.5 sec (22.0-30.0); Prothrombin Time 9.7 sec (9.0-12.0)
[2019-05-31 18:16] LABS: ALT 18 U/L (21-72); AST 22 U/L (17-59); African American GFR (CKD) >90 (>60 ml/min/1.73 sqM); Albumin 4.6 g/dL (3.5-5.0); Alkaline Phosphatase 108 U/L (38-126); Anion Gap 11 mmol/L; Blood Urea Nitrogen 10 mg/dL (9-20); Calcium 9.8 mg/dL (8.4-10.2); Carbon Dioxide 24 mmol/L (22-30); Chloride 104 mmol/L (98-107); Glucose 91 mg/dL (74-99); Potassium 4.2 mmol/L (3.5-5.1); Sodium 139 mmol/L (137-145); Total Bilirubin 0.4 mg/dL (0.2-1.3); Total Protein 7.5 g/dL (6.3-8.2)
== END | disposition home or self-care (01) ==
LOC: LABPAT 17:15
PROVIDERS: ATTEND Orthopaedic Surgery
DX: Z01.812 Encounter for preprocedural laboratory examination (principal); M17.11 Unilateral primary osteoarthritis, right knee
CPT/HCPCS: 80053; 81003; 85025; 85610; 85730; 87070

== ENCOUNTER → 2019-06-08 | Outpatient (CLI) | payer OTHER | END | disposition home or self-care (01) | LOC: LABPAT 13:36 | PROVIDERS: ATTEND Orthopaedic Surgery | DX: Z01.812 Encounter for preprocedural laboratory examination (principal); M17.11 Unilateral primary osteoarthritis, right knee | CPT/HCPCS: 36415; 86850; 86900; 86901 ==

== ENCOUNTER 2019-06-19 07:17 | Day surgery (SDC) | payer BC, OTHER ==
[2019-06-12 15:24] VITALS: BMI 23.3
[~2019-06-19 07:17] MED LIST: ACETAMINOPHEN TAB 500 MG TAB PO ONE; DEXAMETHASONE SOD PHOSPHATE 10 MG/ML 1 ML VIAL IV ONE; GABAPENTIN 300 MG CAP PO ONE; HYDROmorphone 0.5 MG/0.5 ML SYRINGE IVP PRN; MELOXICAM 7.5 MG TAB PO ONE; MIDAZOLAM 2 MG/2 ML VIAL IV PRN; ONDANSETRON 4 MG/2 ML VIAL IVP ONE; ROPIVACAINE 246.25 MG, EPINEPHrine 0.5 MG, KETOROLAC 30 MG, cloNIDine HCL/PF 80 MCG, WA... MISCELLANE ONE; SCOPOLAMINE 1.5MG/72HR PATCH TRANSDERM ONE; TRANEXAMIC ACID 1,000 MG in SODIUM CHLORIDE 0.9% 100 ML IVPB ONE
[2019-06-19] MEDS: LACTATED RINGERS 1,000 ML IV SCH (07:47)
[2019-06-19] MEDS ORDERED: ROPIVACAINE 0.2%-NS ON-Q PUMP 1,090 MG, EMPTY PAIN BALL 1 EACH MISCELLANE PRN (09:08)
--- NOTE | 2019-06-19 09:10 | P.ANPRN ---
Procedure Note - Anesthesia - Nerve Block Performed Right Adductor Canal Infusion Time Out Performed: Yes Date of Procedure: 06/19/19 Procedure Start Time: 07:53 Procedure Stop Time: 08:05 Location of Patient Procedure: PreOp Indication: Acute Post-Operative Pain, Requested by Surgeon Sedation Type: Sedate with meaningful contact maintained Preparation: Sterile Prep, Sterile Dressing Position: Supine Catheter: Indwelling Needle Types: Pajunk Needle Gauge: 18 Ultrasound used to visualize needle placement: Yes Ultrasound used to observe medication spread: Yes Injectate: 0.5% Ropivacaine (see comment for volume) (20 ml) Blood Aspirated: No Pain Paresthesia on Injection Noted: No Resistance on Injection: Normal Image Stored and Saved: Yes
[2019-06-19] MEDS ORDERED: HYDROmorphone 0.5 MG/0.5 ML SYRINGE IVP PRN ×2 (09:37)
[2019-06-19] MEDS ORDERED: DIAZEPAM 5 MG TAB PO PRN (09:37)
[2019-06-19] MEDS ORDERED: NA PHOS,M-B/NA PHOS,DI-BA 133 ML ENEMA RECTAL PRN (09:37)
[2019-06-19] MEDS ORDERED: HYDROcodone/APAP 5-325MG 1 EACH TAB PO PRN ×2 (09:37)
[2019-06-19] MEDS ORDERED: NALOXONE 0.4 MG/ML 1 ML VIAL IV PRN (09:37)
[2019-06-19] MEDS ORDERED: MAGNESIUM HYDROXIDE 2,400 MG/10 ML CUP PO PRN (09:37)
[2019-06-19] MEDS ORDERED: BISACODYL 10 MG SUPP RECTAL PRN (09:37)
[2019-06-19] MEDS ORDERED: HYDROmorphone 1 MG/ML 1 ML SYRINGE IVP PRN (09:37)
[2019-06-19] MEDS ORDERED: hydrOXYzine PAMOATE 25 MG CAP PO PRN (09:37)
[2019-06-19] MEDS ORDERED: ONDANSETRON 4 MG/2 ML VIAL IVP PRN (09:37)
[2019-06-19] MEDS ORDERED: KETAMINE 10 MG/ML 20 ML VIAL ONE (09:58)
[2019-06-19] MEDS ORDERED: fentaNYL (PF) 50 MCG/ML 2 ML AMP ONE (09:58)
[2019-06-19] MEDS ORDERED: SODIUM CHLORIDE 0.9% 100 ML BAG ONE (09:58)
[2019-06-19] MEDS ORDERED: TRANEXAMIC ACID 1,000 MG/10 ML VIAL ONE (09:58)
[2019-06-19] MEDS ORDERED: diphenhydrAMINE 50 MG/ML 1 ML VIAL ONE (09:58)
[2019-06-19] MEDS ORDERED: MIDAZOLAM 2 MG/2 ML VIAL ONE (09:58)
[2019-06-19] MEDS ORDERED: ceFAZolin 3,000 MG in SODIUM CHLORIDE 0.9% IRRIGATIO 3,000 ML IRRIGATION ONE (10:02)
--- NOTE | 2019-06-19 11:54 | P.OP ---
Date of Procedure: 06/19/19 Preoperative Diagnosis: Severe osteoarthritis right knee Postoperative Diagnosis: Severe osteoarthritis right knee Procedure(s) Performed: Right total knee arthroplasty with Visionaire patient specific guides Implants: Chacko and Nephew Journey II CR Oxinium cruciate retaining femoral component size 7, right Chacko & Nephew Journey right nonporous tibial baseplate size 6 Chacko & Nephew Journey II, XLPE Deep Dished articular insert, size 9 mm, Size 5- 6 right Chacko & Nephew Journey BCS resurfacing oval patellar component, 32 mm All components were cemented using Palacos R bone cement. Visionaire patient specific guides The articulation is Oxinium on polyethylene. Anesthesia: spinal Surgeon: Song Boles Clerical Supervisor #1: Rosario Randhawa Estimated Blood Loss (ml): 50 Pathology: other (Bone and cartilage) Condition: stable Disposition: PACU Indications for Procedure: After failure of conservative treatment we discussed the surgical and nonsurgical treatment options at length. Patient wishes to proceed with a total knee arthroplasty. Complications specific to this procedure were discussed at length, including but not limited to infection, bleeding, stiffness, and nerve injury. Patient is aware of all these complications and informed consent was obtained Operative Findings: The operative findings are consistent with severe osteoarthritis of the right knee Description of Procedure: Patient was seen in the preoperative area consent was reviewed and operative site was marked with a skin marker. An adductor canal pain catheter was placed by anesthesia in the preoperative area. Patient was then brought to the operating room and given preoperative antibiotics intravenously. A spinal anesthetic was administered by the anesthesia department. A tourniquet was placed on the upper thigh and the lower extremity was prepped and draped in usual sterile fashion. A gram of transexamic acid was given. A universal timeout was then performed which confirmed the patient's name, surgical site, ALLERGIES, and consent. The lower extremity was then exsanguinated and tourniquet was inflated to 250 mmHg. A standard and anterior midline approach to the knee was performed. The skin and subcutaneous tissue was dissected down to the patellar tendon. A medial parapatellar arthrotomy was then performed. The knee was then extended, the patellar was everted, and the knee was again flexed. Anterior horns of both menisci were excised, and a release was performed to the posterior medial aspect of the knee. On gross visual inspection, there was complete loss of articular cartilage in the medial and patellofemoral joint spaces. There was also significant cartilage damage in the lateral compartment. There were multiple periarticular osteophytes. The patient specific guide was placed on the distal femur, and pinned in place. Using the patient specific guide, the distal femoral cut was performed. The cutting block was then removed and the cut was checked for flatness. The appropriate 5-in-1 cutting block was then pinned in place through the holes that were drilled through the patient specific guide. The anterior condyles were cut without notching. The posterior and chamfer cuts were performed while protecting the collateral ligaments. The cutting block was then removed. Attention was then directed to the tibia. The remaining ACL was removed with a Ronguer, and the tibia was then gently subluxed forward with a large bent knee retractor. Any remaining menisci was excised. The posterior lateral corner was cauterized in order to cauterize the lateral geniculate artery. The patient specific guide for the tibia was then placed and was held in place with pins. Pinholes were then placed for rotation of the tibial component as well. Proximal tibia was then cut and sized. Next trials were then placed with the appropriate-sized insert. The knee was able to fully extend and flex to 130 and was stable throughout all range of motion. The knee was then extended, patella everted. Patella was then measured, and then using an osteotomy guide, the patella was cut at the appropriate level. The patella was then measured and drilled and the patella trial was then placed. The knee was then taken through range of motion with the patella trial and the patella tracked normally. The knee was then extended patella trial was then removed and the patella was everted. Knee was then flexed and lug holes were drilled through the femoral trial and the femoral trial was then removed. The tibial was then exposed, and the tibial broach guide was then pinned in place after it was set for the appropriate rotation to allow for the most coverage without overhang. The tibia was then reamed and broached. The cut surfaces of bone were then irrigated with pulsatile lavage. The posterior structures were injected with the ropivacaine solution. The knee was also irrigated with Irrisept solution. The components were then opened, the cement was mixed, and the components were then cemented in place. The cement was allowed to harden with the knee in full extension. While the cement was hardening, the remaining soft tissues were then injected with a ropivacaine solution, which consisted of 246.25 mg of ropivacaine, 0.5 mg of epinephrine, 30 mg of Toradol, 80 g of clonidine, and 48.45 mL of sterile water, for a total of 100 mL of fluid injected. After the cemented hardened. The tourniquet was released, and hemostasis was obtained. A second gram of transexamic acid was given. The knee was again irrigated. The knee was again taken through range of motion and found to be stable throughout all range of motion of 0-130, and the patella tracked normally. The fascia was then closed with #2 strata fix suture. The subcutaneous tissue was closed with 3-0 Vicryl and 3-0 strata fix. Dermabond glue was used for the skin and placed with the knee in flexion. The patient was placed in a sterile silver dressing. Patient was then transferred to recovery room in stable condition. The licensed occupational therapy assistant RIN Cameron was required due the complexity surgery and the need for a skilled assistant case manager. She assisted in positioning, draping, retraction, and closure of the wound.
[2019-06-19] MEDS: SODIUM CHLORIDE 0.9% 1,000 ML IV SCH (12:26)
--- NOTE | 2019-06-19 12:46 | XR ---
Right knee HISTORY: Status post right knee arthroplasty 2 views of the right knee Patient is status post right knee arthroplasty. There is anatomic alignment. Bone mineralization is r educed. Lucency in the soft tissues is compatible with postop state. There are ossific densities abou t the knee which may be postoperative. IMPRESSION: Orthopedic follow-up as described.
[2019-06-19] MEDS: ASPIRIN 325 MG TAB PO SCH (19:36)
[2019-06-19] MEDS ORDERED: SENNOSIDES-DOCUSATE SODIUM 1 EACH TAB PO SCH (21:00)
[2019-06-20] MEDS: LACTATED RINGERS 1,000 ML IV SCH (02:16)
[2019-06-20] MEDS: SODIUM CHLORIDE 0.9% 1,000 ML IV SCH ×2 (02:34→10:11)
[2019-06-20 08:01] LABS: Basophils % (A) 0 %; Eosinophils # (A) 0.1 k/uL (0-0.7); Eosinophils % (A) 1 %; HCT 40.6 % (39.0-53.0); Lymphocytes # (A) 1.7 k/uL (1.0-4.8); Lymphocytes % (A) 23 %; MCH 32.8 pg (25.0-35.0); MCHC 32.7 g/dL (31.0-37.0); MCV 100.3 fL (80.0-100.0); Mean Platelet Volume 5.7; Monocytes # (A) 0.6 k/uL (0-1.0); Monocytes % (A) 8 %; Neutrophils # (A) 4.7 k/uL (1.3-7.7); Neutrophils % (A) 66 %; Platelet Count 225 k/uL (150-450); RBC 4.05 m/uL (4.30-5.90); RDW 12.8 % (11.5-15.5); WBC 7.1 k/uL (3.8-10.6)
--- NOTE | 2019-06-20 08:01 | P.DS ---
Providers Expected date of discharge: 06/20/19 Attending physician: Song Boles Consults: 06/19/19 09:37 Consult Physician Routine Consulting Provider: Kory Montaño Consult Reason/Comments: medical management Do you want consulting provider notified?: Yes Primary care physician: Stated None - Discharge Diagnosis(es) (1) Osteoarthritis of right knee Current Visit: Yes Status: Acute (2) S/P total knee arthroplasty Current Visit: Yes Status: Acute Hospital Course: This is a 59-year-old male with known history of degenerative arthritis of the right knee. The patient presents for evaluation. After discussion and consideration patient elects to proceed with total knee arthroplasty. The patient is seen preoperatively by Dr. Boles and medically cleared for surgery by their primary care physician. Patient is admitted to [facility] on 06/19/2019 for total knee arthroplasty. The procedures performed without complication or sequelae. The patient is doing well postoperatively. Labs and vital signs are stable on day of discharge. On day of discharge patient's knee incision is healing well. There is minimal erythema. There is no drainage noted at this time. There is minimal soft tissue swelling to the knee. Patient has full foot and ankle motion without difficulty or pain. Calf is soft and nontender to palpation. Neurovascular status to the right lower extremity is intact. Patient is discharged home in good condition. Opioid start talking form is reviewed and signed at patient bedside. Please see med rec for accurate list of home medications. Plan - Discharge Summary Discharge Rx Participant: Yes New Discharge Prescriptions: New Aspirin 325 mg PO BID #60 tab Sennosides [Senokot] 1 tab PO BID #60 tablet HYDROcodone/APAP 5-325MG [[place] 5-325] 1 - 2 tab PO Q6HR PRN #56 tab PRN Reason: Pain No Action Acetaminophen Tab [Tylenol Tab] 1,000 mg PO DIRECTED PRN PRN Reason: Pain Lisinopril [Zestril] 10 mg PO DAILY Discharge Medication List Acetaminophen Tab [Tylenol Tab] 1,000 mg PO DIRECTED PRN 02/10/19 [History] Lisinopril [Zestril] 10 mg PO DAILY 06/12/19 [History] Aspirin 325 mg PO BID #60 tab 06/19/19 [Rx] Sennosides [Senokot] 1 tab PO BID #60 tablet 06/19/19 [Rx] HYDROcodone/APAP 5-325MG [[place] 5-325] 1 - 2 tab PO Q6HR PRN #56 tab 06/20/19 [Rx] Follow up Appointment(s)/Referral(s): Song Boles DO [Doctor of Osteopathic Medicine] - 2 Weeks Ambulatory/Diagnostic Orders: Continuous Passive Motion (CPM) Machine [DME.AMB1] Time Frame: 3 Weeks, Location: None Selected Activity/Diet/Wound Care/Special Instructions: Weightbearing as tolerated with a walker. CPM 5-6h daily. Leave dressing intact. May be removed by home care nurse or by patient in 10 days. May shower with dressing on. Recommend use of compression stockings daily for at least 2 weeks during the day to help prevent swelling and blood clots. May remove at night before sleeping. Please follow up with [facility] and call with any questions or concerns, . Discharge Disposition: HOME WITH HOME HEALTH SERVICES
[2019-06-20 08:12] LABS: HGB 13.3 gm/dL (13.0-17.5)
--- NOTE | 2019-06-20 08:14 | P.PN ---
Progress Note - Text Progress Note Date: 06/20/19 Patient complaining of right leg shooting pains relieved with "tapping" his foot. The pains were frequent overnight, but better now. Moderate pain at the knee improved with [place]. VSS Right adductor catheter site clean and dry A/P POD#1 s/p R TKA - implement catheter bolus - consider flexeril - consider magnesium - consider neurontin
[2019-06-20] MEDS: ASPIRIN 325 MG TAB PO SCH (08:37)
[2019-06-20 08:53] VITALS: BP 149/79; PULSE 75; RESP 12; TEMP 98
[2019-06-20] MEDS ORDERED: MELOXICAM 7.5 MG TAB PO SCH (09:00)
--- NOTE | 2019-06-20 22:27 | P.CONS ---
History of Present Illness - Reason for Consult Consult date: 06/20/19 Medical management Requesting physician: Song Boles - Chief Complaint Right knee surgery - History of Present Illness Consultation: This is a very pleasant 59-year-old patient of Dr. Sarah Ramirez. Patient's had osteoarthritis predominantly in the right knee but also in the left knee. Symptoms had been progressively getting worse. With time. Was having increasing pain with activity getting better with rest. Localized to the right knee with activity.. Because symptoms getting worse decided to proceed with surgery. Also has hypertension. Is a smoker. Postprocedure feeling well. Patient is controlled. No nausea vomiting. at the bedside. No chronic symptoms. Review of systems: GEN.: None EYES: None HEENT: None NECK: None RESPIRATORY: None CARDIOVASCULAR: None GASTROINTESTINAL: None GENITOURINARY: None MUSCULOSKELETAL: Pain joints, especially the left knee and right knee LYMPHATICS: None HEMATOLOGICAL: None PSYCHIATRY: None NEUROLOGICAL: None Social history: Smokes half a pack a day for 34 years. 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 Physical examination: VITAL SIGNS: 98, 75, 12, 149/79, 94% room air, GENERAL: BMI 22.3, sitting up in bed comfortable. EYES: Pupils equal. Conjunctiva normal. HEENT: External appearance of nose and ears normal, oral cavity grossly normal. NECK: JVD not raised; masses not palpable. HEART: First and second heart sounds are normal; no edema. LUNGS: Respiratory rate normal; clear to auscultation. ABDOMEN: Soft, nontender, liver spleen not palpable, no masses palpable. PSYCH: Alert and oriented x3; mood and affect normal. NEUROLOGICAL: Cranial nerves grossly intact; no facial asymmetry, power and sensation grossly intact. LYMPHATICS: No lymph nodes palpable in the axilla and neck MUSKO schedule: Dressing over the left knee, evidence of OA in the hands INVESTIGATIONS, reviewed in the clinical context: White count 7.1 and hemoglobin 13.3 Assessment: -Left total knee arthroplasty -Chronic nicotine dependence patient cigarette smoker -Essential hypertension -Primary osteoarthritis Plan: Care was discussed with the patient. Questions were answered. Patient should f ollow with Drs. Ramirez of for discharge. Thank you Dr. Boles Past Medical History Past Medical History: Hypertension, Musculoskeletal Disorder Additional Past Medical History / Comment(s): Rt knee problems. History of Any Multi-Drug Resistant Organisms: None Reported Past Surgical History: Hernia Repair, Orthopedic Surgery Additional Past Surgical History / Comment(s): Rt Bicep Muscle surg. Rt knee scope 02/11/19. Past Anesthesia/Blood Transfusion Reactions: No Reported Reaction Past Psychological History: No Psychological Hx Reported Smoking Status: Current every day smoker Past Alcohol Use History: Occasional Additional Past Alcohol Use History / Comment(s): Smokes 1/2 PPD, since 1984. Past Drug Use History: None Reported - Past Family History Mother Family Medical History: Cancer, Diabetes Mellitus Additional Family Medical History / Comment(s): Pancreatic CA Medications and Allergies Home Medications Medication Instructions Recorded Confirmed Type Acetaminophen Tab [Tylenol Tab] 1,000 mg PO DIRECTED PRN 02/10/19 06/12/19 History Lisinopril [Zestril] 10 mg PO DAILY 06/12/19 06/12/19 History Aspirin 325 mg PO BID #60 tab 06/19/19 Rx Sennosides [Senokot] 1 tab PO BID #60 tablet 06/19/19 Rx HYDROcodone/APAP 5-325MG [[place] 1 - 2 tab PO Q6HR PRN #56 tab 06/20/19 Rx 5-325] Allergies Allergy/AdvReac Type Severity Reaction Status Date / Time No Known Allergies Allergy Verified 06/19/19 07:28 Physical Exam Vitals: Vital Signs Temp Pulse Resp BP BP Pulse Ox 06/20/19 07:00 98 F 75 12 149/79 94 L 06/20/19 03:34 18 06/20/19 01:42 97.9 F 61 18 123/68 96 06/20/19 00:10 16 06/19/19 19:45 18 06/19/19 19:05 98.1 F 77 18 108/62 95 06/19/19 15:15 57 L 125/75 06/19/19 15:00 58 L 119/76 06/19/19 14:45 59 L 111/68 06/19/19 14:30 65 101/71 06/19/19 14:15 58 L 100/57 06/19/19 14:00 54 L 109/64 06/19/19 13:45 52 L 97/58 06/19/19 13:30 61 110/66 06/19/19 13:15 97.6 F 61 12 105/62 94 L 06/19/19 12:47 64 16 99/53 99 06/19/19 12:34 61 16 101/54 97 06/19/19 12:15 64 16 103/59 96 06/19/19 12:07 98.8 F 66 14 107/59 96 Intake and Output 06/19/19 06/20/19 06/20/19 22:59 06:59 14:59 Intake Total 260 Output Total 550 Balance -550 260 Intake: Intake, IV Titration 260 Amount Sodium Chloride 0.9% 1, 260 000 ml @ 65 mls/hr IV . [id number] [facility] Rx#:[id number] Output: Urine 550 Other: Voiding Method Toilet Toilet Toilet # Voids 1 Results CBC & Chem 7: 06/20/19 07:11 Labs: Abnormal Lab Results - Last 24 Hours (Table) 06/20/19 Range/Units 07:11 RBC 4.05 L (4.30-5.90) m/uL MCV 100.3 H (80.0-100.0) fL
== END 2019-06-20 12:25 | disposition home health service (06) ==
LOC: ORWHC2ENDO 07:17 → 4SSUR 12:02 → ORWHC2ENDO 06-20 12:25
PROVIDERS: ATTEND Orthopaedic Surgery
DX: M17.0 Bilateral primary osteoarthritis of knee (principal); M25.761 Osteophyte, right knee; I10 Essential (primary) hypertension; F17.210 Nicotine dependence, cigarettes, uncomplicated; Z79.82 Long term (current) use of aspirin; Z79.891 Long term (current) use of opiate analgesic; Z79.899 Other long term (current) drug therapy; Z83.3 Family history of diabetes mellitus; Z80.0 Family history of malignant neoplasm of digestive organs
CPT/HCPCS: 97161; 64448; 76942; 86900; 86901; 85025; 86850; 88300; 73560; 36415; 27447; C1713; C1776; J2250; J0171; J1100; J0690 ×3; J2405; J1885; J2795 ×2; J0735; J1170

== ENCOUNTER → 2022-01-07 | Outpatient (CLI) | payer BC ==
--- NOTE | 2022-01-07 10:56 | XR ---
Left hand and bowel HISTORY: M 65.9, limited movement 3 views the left hand, 3 views of the first digit of the left hand There are arthropathy changes. Hooked osteophytes are present at the distal metacarpals. There is peggy nt space loss, spurring at the metacarpophalangeal joints, carpometacarpal joint of the first digit, interphalangeal joint of the first digit, distal interphalangeal joints. Soft tissue swelling is pres ent. Soft tissue calcification present adjacent to the distal interphalangeal joint of the third digi t, punctate soft tissue calcification present adjacent to the tuft of the first digit, volar aspect o f the distal third digit. IMPRESSION: Correlate for crystal deposition arthropathy, osteoarthritis, differential includes hemoc hromatosis
--- NOTE | 2022-01-07 10:58 | XR ---
EXAMINATION TYPE: XR chest 2V DATE OF EXAM: 01/07/2022 COMPARISON: Chest x-ray 02/10/2019 HISTORY: Z01.818 TECHNIQUE: Frontal and lateral views of the chest are obtained. FINDINGS: There is no focal air space opacity, pleural effusion, or pneumothorax seen. The cardiac silhouette size is within normal limits. Eventration change of the hemidiaphragms noted. There are p rominent lung volumes. The osseous structures are intact, there is thoracic spondylosis. IMPRESSION: No acute cardiopulmonary process.
--- NOTE | 2022-01-07 12:37 | XR ---
Please see dictated report left hand same date
== END | disposition home or self-care (01) ==
LOC: RADXRMAIN 08:22
PROVIDERS: ATTEND Internal Medicine
DX: Z01.818 Encounter for other preprocedural examination (principal); M65.9 Synovitis and tenosynovitis, unspecified
CPT/HCPCS: 71046

== ENCOUNTER → 2022-02-06 | Outpatient (CLI) | payer BC ==
[2022-02-06 12:05] LABS: Uric Acid 6.2 mg/dL (3.7-8.7)
== END | disposition home or self-care (01) ==
LOC: LABWHC1 08:09
PROVIDERS: ATTEND Internal Medicine
DX: M65.9 Synovitis and tenosynovitis, unspecified (principal)
CPT/HCPCS: 36415; 83540; 84550

== ENCOUNTER → 2022-02-06 | Outpatient (CLI) | payer BC ==
[2022-02-06 11:55] LABS: Basophils # (A) 0.03 X 10*3/uL (0.00-0.10); Basophils % (A) 0.7 %; Eosinophils # (A) 0.14 X 10*3/uL (0.04-0.35); Eosinophils % (A) 3.1 %; HCT 46.7 % (39.6-50.0); Immature Grans, Automated 0.2 %; Lymphocytes # (A) 1.42 X 10*3/uL (0.90-5.00); Lymphocytes % (A) 31.4 %; MCH 31.3 pg (27.0-32.0); MCHC 32.1 g/dL (32.0-37.0); MCV 97.5 fL (80.0-97.0); Mean Platelet Volume 9.2 fL (9.5-12.2); Monocytes # (A) 0.57 X 10*3/uL (0.20-1.00); Monocytes % (A) 12.6 %; NRBC Per 100 WBC 0 /100 WBCS (0.0-0.0); Neutrophils # (A) 2.35 X 10*3/uL (1.80-7.70); Platelet Count 331 X 10*3/uL (140-440); RBC 4.79 X 10*6/uL (4.40-5.60); RDW 13.7 % (11.5-14.5); WBC 4.52 X 10*3/uL (4.50-10.00)
[2022-02-06 12:02] LABS: African American GFR (CKD) 110.6 (60.0-200.0); Anion Gap 9.4 mmol/L (10.00-18.00); BUN/Creat Ratio 10.43 Ratio (12.00-20.00); Blood Urea Nitrogen 8.6 mg/dL (9.0-27.0); Calcium 9.5 mg/dL (8.7-10.3); Carbon Dioxide 23.9 mmol/L (20.0-27.5); Non-African American GFR(CKD) 95.4 (60.0-200.0); Potassium 4.4 mmol/L (3.5-5.5)
[2022-02-06 12:05] LABS: INR 0.92 (0.90-1.11); Prothrombin Time 10.4 sec (9.9-11.9)
== END | disposition home or self-care (01) ==
LOC: LABPAT 08:11
PROVIDERS: ATTEND Orthopaedic Surgery
DX: Z01.812 Encounter for preprocedural laboratory examination (principal); M17.12 Unilateral primary osteoarthritis, left knee
CPT/HCPCS: 80048; 85025; 85610

== ENCOUNTER 2022-02-23 07:40 | Observation (INO) | payer BC ==
[2022-02-19 13:41] VITALS: BMI 24.3
--- NOTE | 2022-02-22 12:51 | HP ---
HISTORY AND PHYSICAL CHIEF COMPLAINT: Left knee pain. HISTORY OF PRESENT ILLNESS: Patient is a 61-year-old male who presents with left knee pain. It has progressed over the past year. He did have a slip and fall 4 months ago. He notes medial pain along with swelling, giving way and locking. He has been unable to work because of his pain. He has been taking ibuprofen without much relief. He uses a cane for stability. PAST MEDICAL HISTORY: Significant for arthritis. PAST SURGICAL HISTORY: Significant for right total knee arthroplasty in addition to previous right shoulder surgery. CURRENT MEDICATIONS: Motrin. ALLERGIES: He denies drug allergies. FAMILY HISTORY: Significant for cancer. SOCIAL HISTORY: Significant for social alcohol use. He recently quit smoking. REVIEW OF SYSTEMS: 16-point review of systems otherwise reviewed and is noncontributory. PHYSICAL EXAMINATION: On examination, the patient is approximately 5 foot 10, 155 pounds of mesomorphic habitus. HEENT exam is nonfocal. NECK is supple. He has painless passive motion of the left hip. Straight-leg raise is negative. Active motion left knee: Minus 15 to 89 degrees of flexion. He has a large effusion. He is tender about the medial joint line. Collaterals are stable. Olamide is negative. Jose's is equivocal. He has genu varum alignment. He has an antalgic gait pattern. His distal neurovascular exam appears intact in the left lower extremity. Weightbearing notch, lateral and Merchant views left knee obtained in the office show severe medial and patellofemoral femoral compartment narrowing with [id number] changes and subchondral sclerosis. IMPRESSION: Left knee severe medial and patellofemoral compartment osteoarthrosis. RECOMMENDATIONS: I talked to the patient at length regarding his condition along with treatment options. At this point, he is quite limited because of pain related to his osteoarthrosis despite previous conservative measures. After thorough discussion, he opts to proceed with surgery. We will plan to proceed with left total knee arthroplasty. Risks and benefits were discussed at length in layman's terms. We will institute DVT prophylaxis postoperatively. MMODL / IJN: [id number] /
[~2022-02-23 07:40] MED LIST changes: -ACETAMINOPHEN TAB 500 MG TAB PO ONE; +ACETAMINOPHEN TAB 500 MG TAB PO PRN; -DEXAMETHASONE SOD PHOSPHATE 10 MG/ML 1 ML VIAL IV ONE; +DEXAMETHASONE SOD PHOSPHATE 4 MG/ML 1 ML VIAL IV ONE; -GABAPENTIN 300 MG CAP PO ONE; +LACTATED RINGERS 1,000 ML IV SCH; +LIDOCAINE 1% (10MG/ML) FOR IV START INTRADERMA PRN; -MELOXICAM 7.5 MG TAB PO ONE; +MELOXICAM 7.5 MG TAB PO PRN; -ROPIVACAINE 246.25 MG, EPINEPHrine 0.5 MG, KETOROLAC 30 MG, cloNIDine HCL/PF 80 MCG, WA... MISCELLANE ONE; -SCOPOLAMINE 1.5MG/72HR PATCH TRANSDERM ONE; -TRANEXAMIC ACID 1,000 MG in SODIUM CHLORIDE 0.9% 100 ML IVPB ONE; +TRANEXAMIC ACID IN NACL,ISO-OS 1,000 MG in SALINE 1 100ML.BAG IVPB PRN
[2022-02-23] MEDS ORDERED: MIDAZOLAM 2 MG/2 ML VIAL IVP ONE (08:54)
[2022-02-23] MEDS ORDERED: DEXAMETHASONE SOD PHOSPHATE 4 MG/ML 1 ML VIAL ONE (09:38)
[2022-02-23] MEDS ORDERED: fentaNYL (PF) 50 MCG/ML 2 ML AMP ONE (09:38)
[2022-02-23] MEDS ORDERED: TRANEXAMIC ACID IN NACL,ISO-OS 1,000 MG/100 ML BAG ONE (09:38)
[2022-02-23] MEDS ORDERED: MIDAZOLAM 2 MG/2 ML VIAL ONE (09:38)
[2022-02-23] MEDS ORDERED: ROPIVACAINE 5 MG/ML 30 ML VIAL ONE (09:38)
[2022-02-23] MEDS ORDERED: PROPOFOL 10 MG/ML 20 ML VIAL IV ONE (09:38)
[2022-02-23] MEDS ORDERED: ceFAZolin 1,000 MG in SODIUM CHLORIDE 0.9% 1,000 ML IRRIGATION ONE (10:03)
[2022-02-23] MEDS ORDERED: HYDROcodone/APAP 5-325MG 1 EACH TAB PO PRN (11:26)
[2022-02-23] MEDS ORDERED: HYDROmorphone 1 MG/ML 1 ML SYRINGE IVP PRN (11:26)
[2022-02-23] MEDS ORDERED: NALOXONE 0.4 MG/ML 1 ML VIAL IV PRN (11:26)
--- NOTE | 2022-02-23 11:54 | P.OP ---
Date of Procedure: 02/23/22 Preoperative Diagnosis: Left knee severe tricompartmental osteoarthrosis Postoperative Diagnosis: Same Procedure(s) Performed: Left total knee arthroplastycementedposterior stabilized Implants: [employer] journey 2 size 7 cemented femoral component, size 6 cemented tibial component, 10 mm articular surface, 35 mm cemented patellar component. This is a posterior stabilized implant. Anesthesia: regional, spinal Surgeon: Juan Stanford [employer] Scheduler #1: Tanner Tolliver Estimated Blood Loss (ml): 50 Pathology: other (Bone fragments) Condition: stable Disposition: PACU Indications for Procedure: The patient's 61-year-old male who presents with progressive left knee pain secondary osteoarthrosis despite conservative measures. A discussion of the risks and benefits of operative intervention versus continued conservative measu res was made with the patient. He opted to proceed with surgery. Operative risks to include infection, neurovascular injury, development of blood clots, possible component loosening/failure need for subsequent procedures was discussed. Informed consent was obtained. Operative Findings: As below Description of Procedure: The patient was brought to the operating room, and after induction of spinal anesthesia the left lower extremity was prepped and draped in a normal fashion. The tourniquet was inflated to 270 mm marker. A longitudinal incision extending 3 finger breaths above the superior pole of patella extending to the medial aspect the tibial tubercle was then made. The skin and subcutaneous tissues were divided sharply. Electrocautery was used for hemostasis. A medial parapatellar arthrotomy was performed. The medial soft tissues to include the superficial and deep portions of the medial collateral ligament were elevated subperiosteally. The patella was everted. A portion of the retropatellar fat pad was excised sharply. The anterior cruciate ligament was sacrificed. Blunt retractors were placed. A starting hole was made in the distal femur 1 cm anterior to the posterior cruciate ligament origin. An intramedullary femoral guide was then inserted planning on 5 valgus distal cut with 9 mm distal resection. The cutting block was pinned in place. The distal cut was then made. The posterior referencing sizing guide was utilized. I felt size [] was most appropriate. 3 of external rotation was built into the system and verified off the trans-epicondylar axis and the posterior condyles. The cutting block was pinned in place. The anterior, posterior, and chamfer cuts then made. Bone fragments were removed. The intercondylar guide was placed and the notch cut was made the appropriate male and box chisel. The trial component was then placed. There is good anterior to posterior and medial to lateral fit. The distal peg holes were drilled. The trial component was removed. Attention was then paid towards preparing the proximal femur. An extra medullary guide was utilized in line with the tibial shaft and second metatarsal distally. I planned on 0 mm resection from the medial compartment. The cutting block was pinned in place. The proximal tibial cut was then made. The bone was removed in one fragment. The remnants of the medial and lateral menisci were excised at the capsular junction with electrocautery. The tibia sized most appropriately at size 6. I remove the medial tibial osteophytes. The trial femoral and tibial components were placed along with a 10 mm articular surface. I was able to obtain full flexion and extension with internal and external rotation. After several flexion and extension cycles, the tibial rotation was marked with electrocautery line with the medial one third of the tibial tubercle. Attention was then paid towards preparing the patella. A patella reamer was utilized taking stem to 14 mm of bone stock. A good flush cut was made. The patella sized most appropriately 35 mm. The peg holes were drilled. The trial components placed. I had good patellofemoral tracking with no hands technique. The trial components were then removed. The tibia was prepared in the appropriate rotation with appropriate drill and keel punch. The posterior osteophytes were removed with a curved osteotome. The flexion and extension gaps were checked and felt to be symmetric at 10 mm. A trial components were then removed. The bony surfaces were prepared with pulsatile lavage and dried. The tibial component was then cemented place was fully seated. Excess cement was removed. The femoral component cemented place and was fully seated. Excess cement was removed. The trial 10 mm articular surface was placed and the knee was put in full extension. The patella component was cemented place. After the cement had sufficiently hardened, the knee was again taken through a range of motion. Again I was able to obtain full flexion and extension with varus and valgus stress. The trial 10 mm articular surface was removed and the final one inserted. This was fully seated. Care was taken to avoid any soft tissue interposition. Pulsatile lavage was again utilized. The medial parapatellar arthrotomy was closed with #2 Ethibond suture. The tourniquet was deflated with approximately 70 minutes total tourniquet time. Final hemostasis was obtained with the cautery. There was minimal bleeding therefore a deep drain was not placed. The subcutaneous tissues were reapproximated with interrupted 2-0 Vicryl sutures. The skin was reapproximated with 3-0 subcuticular strata fix suture. Skin tape and adhesive was applied. A sterile dressing was applied. The patient was awoken from sedation and transferred to recovery room in good condition. Blood loss was estimated at 50 mL. No complications were incurred. Sponge and needle counts were correct at the end of the case. Tanner GAR assisted during the major components of this case to include exposure, bone resection, implantation, and closure.
[2022-02-23] MEDS ORDERED: LACTATED RINGERS 1,000 ML IV ONE (12:02)
--- NOTE | 2022-02-23 12:25 | XR ---
Left knee Limited HISTORY: Postop knee arthroplasty 2 views of left knee Patient is status post left knee arthroplasty. There is anatomic alignment. Some lucency noted along the stem of the tibial component on the lateral exam. Alignment is maintained. Lucencies present with in the soft tissues are likely postoperative. There is soft tissue swelling. IMPRESSION: Orthopedic follow-up as described.
--- NOTE | 2022-02-23 13:07 | P.ANPRN ---
Procedure Note - Anesthesia - Nerve Block Performed Left Adductor Canal Infusion Time Out Performed: Yes Date of Procedure: 02/23/22 Procedure Start Time: 08:53 Procedure Stop Time: 09:01 Location of Patient: PreOp Indication: Acute Post-Operative Pain, Requested by Surgeon Sedation Type: Sedate with meaningful contact maintained Preparation: Sterile Prep, Sterile Dressing Position: Supine Catheter: Indwelling Needle Types: Pajunk Needle Gauge: 21 Ultrasound used to visualize needle placement: Yes Ultrasound used to observe medication spread: Yes Blood Aspirated: No Pain Paresthesia on Injection Noted: No Resistance on Injection: Normal Image Stored and Saved: Yes Events: Uneventful and Well Tolerated (ropi .5% 20cc)
--- NOTE | 2022-02-23 13:08 | P.ANPRN ---
Procedure Note - Anesthesia - Nerve Block Performed Left iPack Single Time Out Performed: Yes Date of Procedure: 02/23/22 Procedure Start Time: : Procedure Stop Time: : Location of Patient: PreOp Indication: Acute Post-Operative Pain, Requested by Surgeon Sedation Type: Sedate with meaningful contact maintained Preparation: Sterile Prep Position: Supine Needle Types: Pajunk Needle Gauge: 21 Ultrasound used to visualize needle placement: Yes Ultrasound used to observe medication spread: Yes Blood Aspirated: No Pain Paresthesia on Injection Noted: No Resistance on Injection: Normal Image Stored and Saved: Yes Events: Uneventful and Well Tolerated (ropi .5% 25cc plus dexamethasone 4mg)
[2022-02-23] MEDS: HYDROmorphone 0.5 MG/0.5 ML SYRINGE IVP PRN ×2 (15:48→18:14)
--- NOTE | 2022-02-23 17:27 | P.CONS ---
History of Present Illness - Chief Complaint Medical management - History of Present Illness Patient is 61-year-old male with a past medical history significant for essential hypertensionarthritis and presents to the hospital for elective left knee replacement. Patient was examined at bedside currently states that his pain is well-controlled currently rates it a 45-10 he denies any episodes of intractable nausea, vomiting, fever or chills. Internal medicine was consulted for medical management. Patient states that these only hypertensive and is compliant with his medication at home. Vital signs are stable blood pressure slightly elevated 161/88, on room air, no CBC or BMP completed. Past Medical History Past Medical History: Hypertension, Osteoarthritis (OA) History of Any Multi-Drug Resistant Organisms: None Reported Past Surgical History: Hernia Repair, Orthopedic Surgery Additional Past Surgical History / Comment(s): INGUINAL HERNIA, TOTAL RIGHT KNEE (2018) Past Anesthesia/Blood Transfusion Reactions: No Reported Reaction Past Psychological History: No Psychological Hx Reported Smoking Status: Former smoker Past Alcohol Use History: Occasional Additional Past Alcohol Use History / Comment(s): QUIT SMOKING December. STARTED SMOKING 1984, SMOKED 1/2 TO 2PPD Past Drug Use History: None Reported - Past Family History Mother Family Medical History: Cancer, Diabetes Mellitus Medications and Allergies Home Medications Medication Instructions Recorded Confirmed Type Celecoxib [CeleBREX] 100 mg PO DAILY 02/19/22 02/19/22 History amLODIPine 5 mg PO DAILY 02/19/22 02/19/22 History Allergies Allergy/AdvReac Type Severity Reaction Status Date / Time No Known Allergies Allergy Verified 02/23/22 08:10 Physical Exam Vitals: Vital Signs Temp Pulse Pulse Resp BP BP Pulse Ox 02/23/22 15:15 65 16 161/88 98 02/23/22 15:14 65 16 157/84 98 02/23/22 14:15 54 L 16 131/78 100 02/23/22 13:50 53 L 16 135/78 98 02/23/22 13:30 52 L 16 121/77 100 02/23/22 13:15 52 L 16 134/78 100 02/23/22 13:00 47 L 16 124/73 100 02/23/22 12:45 48 L 16 131/74 100 02/23/22 12:30 44 L 18 116/70 98 02/23/22 12:15 46 L 16 117/67 97 02/23/22 12:06 50 L 16 124/63 96 02/23/22 11:50 97.0 F L 50 L 16 117/66 96 02/23/22 09:12 56 L 16 137/71 99 02/23/22 08:15 98.0 F 72 20 177/86 95 Intake and Output 02/23/22 02/23/22 02/23/22 06:59 14:59 22:59 Intake Total 1451 Output Total 50 Balance 1401 Intake: IV 1451 Output: Estimated Blood Loss 50 Other: Weight 69.1 kg 69.1 kg Gen. patient is awake alert oriented 3 Cardio normal S1/S2 Pulmonary no wheezing or rhonchi appreciated Abdomen soft, nontender Extremity no pitting edema Muscle skeletal left knee replacement with dressing applied was not removed and recent procedure Assessment and Plan Assessment: Assessment/plan #1 essential hypertension #2 status post left knee replacement Plan -Internal medicine consulted for medical management -Resume home dose Norvasc and monitor blood pressure -Pain well-controlled continue with pain management when necessary -PT/OT as appropriate by primary team -If you any questions please not hesitate to contact us at any point thank you.
[2022-02-23] MEDS: HYDROcodone/APAP 7.5-325MG 1 EACH TAB PO PRN (20:08)
[2022-02-23] MEDS ORDERED: SENNOSIDES-DOCUSATE SODIUM 1 EACH TAB PO SCH (21:00)
[2022-02-24] MEDS: HYDROcodone/APAP 7.5-325MG 1 EACH TAB PO PRN ×2 (02:17→10:11)
[2022-02-24] MEDS: HYDROmorphone 0.5 MG/0.5 ML SYRINGE IVP PRN (04:04)
[2022-02-24] MEDS ORDERED: hydrOXYzine pamoate 25 MG CAP PO PRN (07:49)
[2022-02-24 08:50] VITALS: BP 142/82; PULSE 70; RESP 16; TEMP 98.7
[2022-02-24] MEDS ORDERED: RIVAROXABAN 10 MG TAB PO SCH (09:00)
[2022-02-24] MEDS ORDERED: amLODIPine 5 MG TAB PO SCH (09:00)
[2022-02-24 09:56] LABS: Basophils # (A) 0.02 X 10*3/uL (0.00-0.10); Basophils % (A) 0.3 %; Eosinophils # (A) 0.06 X 10*3/uL (0.04-0.35); Eosinophils % (A) 0.9 %; HGB 12.6 g/dL (13.0-17.0); Immature Grans, Automated 0.3 %; Lymphocytes # (A) 1.74 X 10*3/uL (0.90-5.00); MCH 31.9 pg (27.0-32.0); MCHC 32.3 g/dL (32.0-37.0); MCV 98.7 fL (80.0-97.0); Mean Platelet Volume 9.4 fL (9.5-12.2); Monocytes % (A) 17.1 %; NRBC Per 100 WBC 0 /100 WBCS (0.0-0.0); Neutrophils # (A) 3.51 X 10*3/uL (1.80-7.70); Neutrophils % (A) 54.4 %; Platelet Count 236 X 10*3/uL (140-440); RBC 3.95 X 10*6/uL (4.40-5.60); RDW 13.5 % (11.5-14.5); WBC 6.45 X 10*3/uL (4.50-10.00)
--- NOTE | 2022-02-24 10:05 | P.PN ---
Progress Note - Text Progress Note Date: 02/24/22 (8478) Anesthesiology Postop day 1 status post total knee arthroplasty with adductor canal catheter. Patient doing well. VAS 7 out of 10. Gross strength intact in lower extremity. Afebrile. Denies alterations in sensorium. Catheter site intact. Heart regular rate Lungs nonlabored Abdomen nondistended Assessment: Postop day 1 status post total knee arthroplasty with adductor canal catheter Plan: All questions answered. Maintain catheter 2 more days with patient removal at home. Instructions were given at discharge. Spent a great deal of time discussing with patient expected outcomes of catheter. Patient states understanding This note was dictated using [employer] software. Please be advised there is a potential for misspellings or errors in gardening manager.
--- NOTE | 2022-02-24 11:27 | P.PN ---
Subjective Progress Note Date: 02/24/22 Principal diagnosis: Status post left total knee arthroplasty Patient evaluated today at bedside, he is resting comfortably in his hospital bed. Patient's is present at bedside. Patient's pain is currently controlled with his medication. Denies any headaches, lightheadedness, chest pain or shortness of breath. He did ambulate well with therapy today. Objective - Vital Signs Vital signs: Vital Signs Temp 98.7 F 02/24/22 08:00 Pulse 70 02/24/22 08:00 Resp 16 02/24/22 08:00 BP 142/82 02/24/22 08:00 Pulse Ox 94 L 02/24/22 08:00 FiO2 Intake & Output 02/23/22 02/24/22 02/24/22 18:59 06:59 18:59 Intake Total 2010 Output Total 50 1625 Balance 1961 -162 Weight 69.1 kg Intake: IV 1451 Intake, IV Titration 110 Amount Lactated Ringers 1,000 ml 60 @ 20 mls/hr IV .Q24H TY Rx#:[id number] ceFAZolin 2 gm In Sodium 50 Chloride 0.9% 50 ml @ 100 mls/hr IVPB Q8H TY Rx#: [id number] Oral 450 Output: Urine 1625 Estimated Blood Loss 50 Other: Voiding Method Urinal Toilet # Voids 2 - Exam Left lower extremity: Incision is clean, dry, and intact. The exofin fusion tape is in good condition. There is minimal soft tissue swelling and ecchymosis surrounding the medial and lateral aspects of the incision. Calf is soft, no tenderness with palpation. Plantar flexion, dorsiflexion, EHL, FHL are intact. Sensory exam to light touch throughout the extremity is intact, dorsal pedis pulses 2+. - Labs CBC & Chem 7: 02/24/22 05:13 Labs: Abnormal Lab Results - Last 24 Hours (Table) 02/24/22 Range/Units 05:13 RBC 3.95 L (4.40-5.60) X 10*6/uL Hgb 12.6 L (13.0-17.0) g/dL Hct 39.0 L (39.6-50.0) % MCV 98.7 H (80.0-97.0) fL MPV 9.4 L (9.5-12.2) fL Monocytes # 1.10 H (0.20-1.00) X 10*3/uL Assessment and Plan Assessment: Postoperative day #1 status post left total knee arthroplasty Plan: Pain control, plan for discharge home on [place] 7.5 mg/325 mg GI and DVT prophylaxis, aspirin 81 mg twice a day for 30 days . Wound care instructions were discussed the patient comes to include showering instructions along with icing and elevating Home healthcare/nursing after discharge Medical recommendations Discharge planning: Stable for discharge home today
--- NOTE | 2022-02-24 11:31 | P.DS ---
Providers Date of admission: 02/24/22 05:04 Expected date of discharge: 02/24/22 Attending physician: Juan Stanford Consults: 02/23/22 11:29 Consult Physician Routine Consulting Provider: Jose Bautista Consult Reason/Comments: Medical Management s/p left total knee arthroplasty Do you want consulting provider notified?: Yes Primary care physician: Tripp Richards MD Hospital Course: Date of admission: 02/23/2022 Date of discharge: 02/24/2022 Admission diagnosis: Status post left total knee arthroplasty Discharge diagnosis: Same Attending physician: Dr. Stanford Surgical procedures: Left total knee arthroplasty Brief history: Patient is a 61-year-old male with a history of progressive primary left knee osteoarthritis. At this point patient has failed conservative treatment measures and has opted to proceed with a elective left total knee arthroplasty. Hospital course: Details of patient's surgery can be found in operative report. Patient tolerated the procedure well and was subsequently transported to orthopedic floor. Patient's orthopeidc and medical care was provided daily. Patient had daily laboratory tests performed for evaluation of overall blood counts. Patient had daily physical therapy to include strengthening range of motion as well as education with walker ambulation. Patient was treated with Xarelto for their postoperative DVT prophylaxis during their inpatient stay. Patient was noted to have a relatively uneventful postoperative course. Patient reported satisfactory pain control with oral pain medications by postoperative day 0. Patient showed satisfactory progress with physical therapy. Patient moved steadily through the program and had no difficulty meeting the goals by postoperative day 1. Given patient's otherwise satisfactory course and having met physical therapy goals, plan is to discharge patient home on postoperative day 1. Discharge condition/disposition: Patient will be discharged home in stable condition. Discharge medications: Instructions are given on resumption of patient's normal daily medications per primary care recommendation, in addition patient will be prescribed [place] 7.5 mg/325 mg, Colace 100 mg, aspirin 81 mg. Discharge instructions: 1. Wound care and infection precautions, keep incision dry and covered while showering, no lotions, creams, moisturizers. No soaking, tubs, pools, hottubs. Do not scrub over the incision. 2. Weight-bear as tolerated with walker / cane until follow-up. 3. Ice and elevate when necessary. Do not exceed 20 minutes per hour with ice pack. 4. Utilize compression sleeve until seen at first follow up appointment. 5. Visiting nursing care. 6. Home physical therapy including home CPM. 7. Pain meds and anticoagulants per prescription. 8. Pain medication has potential to cause constipation. Increase oral fluid and fiber intake. Contact primary care provider if you have not had a bowel movement within 48 hours after discharge 9. No anti-inflammatory medication until discussed at first post operative visit, this including Motrin, Aleve, Mobic, Diclofenac. 10. Follow up in office at 2 weeks postop with Esvin Aguirre PA-C/Tanner Ruiz 11. Follow up with your primary care doctor 7-10 days after discharge. 12. Contact [facility] with any questions, . Wound care instructions: 1. Okay to remove On-Q catheter on 02/26/2022 2. Keep incision covered and dry while showering Procedures: Left total knee arthroplasty Patient Condition at Discharge: Good Plan - Discharge Summary Discharge Rx Participant: No New Discharge Prescriptions: New Docusate [Colace] 100 mg PO DAILY #30 capsule HYDROcodone/APAP 7.5-325MG [[place] 7.5] 1 - 2 each PO Q6HR PRN #42 tab PRN Reason: Pain Aspirin [Adult Low Dose Aspirin EC] 81 mg PO BID #60 tab No Action amLODIPine 5 mg PO DAILY Celecoxib [CeleBREX] 100 mg PO DAILY Discharge Medication List Celecoxib [CeleBREX] 100 mg PO DAILY 02/19/22 [History] amLODIPine 5 mg PO DAILY 02/19/22 [History] Aspirin [Adult Low Dose Aspirin EC] 81 mg PO BID #60 tab 02/24/22 [Rx] Docusate [Colace] 100 mg PO DAILY #30 capsule 02/24/22 [Rx] HYDROcodone/APAP 7.5-325MG [[place] 7.5] 1 - 2 each PO Q6HR PRN #42 tab 02/24/22 [Rx] Follow up Appointment(s)/Referral(s): [facility] [NON-STAFF] - As Needed ([facility] will call you to schedule your in home nursing and physical therapy visits. ) [facility] [NON-STAFF] - As Needed (*Please call [facility] once home to arrange delivery of the Continous Passive Motion (CPM) machine. ) Tanner Tolliver, PAC [PHYSICIAN LOOM REPAIRER] - 2 Weeks Activity/Diet/Wound Care/Special Instructions: Orthopedic Discharge Instructions: 1. Wound care and infection precautions, keep incision dry and covered while showering, no lotions, creams, moisturizers. No soaking, pools, hot tubs. Do not scrub over incision. 2. Weight-bear as tolerated with walker / cane until follow-up. 3. Ice and elevate when necessary. Do not exceed 20 minutes per hour with ice pack. 4. Utilize compression sleeve until seen at first follow up appointment. 5. Pain meds and anticoagulants per prescription. 6. Pain medication has potential to cause constipation. Increase oral fluid and fiber intake. Contact primary care provider if you have not had a bowel movement within 48 hours after discharge. 7. No anti-inflammatory medication until discussed at first post operative visit, this including Motrin, Aleve, Mobic, Diclofenac. 8. Follow up in office at 2 weeks postop with Esvin Aguirre PA-C/Tanner Tolliver PA-C 9. Follow up with your primary care doctor 7-10 days after discharge. 10. Contact [facility] with any questions, . Discharge Disposition: HOME WITH HOME HEALTH SERVICES
== END 2022-02-24 12:33 | disposition home health service (06) ==
LOC: OR 07:40 → 4SSUR 11:49 → OR 02-24 05:04 → 4SSUR 02-24 05:04
PROVIDERS: ADMIT Orthopaedic Surgery; ATTEND Orthopaedic Surgery
DX: M17.12 Unilateral primary osteoarthritis, left knee (principal); I10 Essential (primary) hypertension; M65.849 Other synovitis and tenosynovitis, unspecified hand; Z96.651 Presence of right artificial knee joint; Z87.891 Personal history of nicotine dependence; Z79.1 Long term (current) use of non-steroidal anti-inflammatories (NSAID); Z79.899 Other long term (current) drug therapy; Z80.9 Family history of malignant neoplasm, unspecified; Z83.3 Family history of diabetes mellitus
CPT/HCPCS: 97161; 64999; 64448; 76942; 85025; 88300; 73560; 27447; G0378; C1713; C1776; J2250; J1100; J0690 ×3; J2405; J3010; J1170 ×3; J2795; J2704

== ENCOUNTER 2024-07-05 10:35 | Emergency (ER) | payer BC, OTHER ==
[2024-07-05 10:52] VITALS: RESP 18
--- NOTE | 2024-07-05 11:47 | XR ---
EXAMINATION TYPE: XR elbow complete RT DATE OF EXAM: 07/05/2024 COMPARISON: NONE HISTORY: 64-year-old male pain after fall TECHNIQUE: 3 views FINDINGS: Underlying elbow joint effusion. The setting of at least moderate degenerative change radiocapitellar and ulnar trochlear joint with bulky marginal spurring. Posterior loose bodies measure up to 1.6 cm. No acute fracture, subluxation, dislocation seen. Additional spurring at the lateral condyle. IMPRESSION: 1. 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 Posterior loose bodies measuring up to 1.6 cm. 2. The elbow joint effusion is likely reactive to the arthritis. 3. Changes of chronic common extensor origin tendinopathy. 4. No acute fracture seen. [facility], , 07/05/2024 11:44 AM
--- NOTE | 2024-07-05 12:06 | ED ---
Fall HPI - General Chief Complaint: Fall Stated Complaint: Fall/R Arm Injury Time Seen by Provider: 07/05/24 10:49 Source: patient, RN notes reviewed Mode of arrival: ambulatory - History of Present Illness Initial Comments: 64-year-old male presents emergency department chief complaint of right elbow pain. Patient dates that yesterday he was outside walking when he tripped over a rock and fell onto his right elbow. Patient denies hitting his head or loss conscious at the time of the. Currently he is endorsing pain over the right elbow that is exacerbated with range of motion and palpation. He denies wrist pain or shoulder pain on the right side. Denies paresthesias. Patient has follow-up portfolio specialist, Dr. Stanford, previously. Denies blood thinner use. - Related Data Home Medications Medication Instructions Recorded Confirmed Celecoxib [CeleBREX] 100 mg PO DAILY 02/19/22 02/19/22 amLODIPine 5 mg PO DAILY 02/19/22 02/19/22 Previous Rx's Medication Instructions Recorded Aspirin [Adult Low Dose Aspirin EC] 81 mg PO BID #60 tab 02/24/22 Docusate [Colace] 100 mg PO DAILY #30 capsule 02/24/22 HYDROcodone/APAP 7.5-325MG [[place] 1 - 2 each PO Q6HR PRN #42 tab 02/24/22 7.5] Allergies Allergy/AdvReac Type Severity Reaction Status Date / Time No Known Allergies Allergy Verified 07/05/24 10:48 Review of Systems ROS Statement: Those systems with pertinent positive or pertinent negative responses have been documented in the HPI. ROS Other: All systems not noted in ROS Statement are negative. Past Medical History Past Medical History: Hypertension, Osteoarthritis (OA) History of Any Multi-Drug Resistant Organisms: None Reported Past Surgical History: Hernia Repair, Joint Replacement, Orthopedic Surgery Additional Past Surgical History / Comment(s): INGUINAL HERNIA, TOTAL RIGHT KNEE (2019) left knee Past Anesthesia/Blood Transfusion Reactions: No Reported Reaction Past Psychological History: No Psychological Hx Reported Smoking Status: Current every day smoker Past Alcohol Use History: Occasional Past Drug Use History: None Reported - Past Family History Mother Family Medical History: Cancer, Diabetes Mellitus General Exam Limitations: no limitations General appearance: alert, in no apparent distress Eye exam: Present: normal appearance, PERRL, EOMI. Absent: scleral icterus, conjunctival injection, periorbital swelling ENT exam: Present: normal exam, mucous membranes moist Neck exam: Present: normal inspection. Absent: tenderness, meningismus, lymphadenopathy Respiratory exam: Present: normal lung sounds bilaterally. Absent: respiratory distress, wheezes, rales, rhonchi, stridor Cardiovascular Exam: Present: regular rate, normal rhythm, normal heart sounds. Absent: systolic murmur, diastolic murmur, rubs, gallop, clicks GI/Abdominal exam: Present: soft, normal bowel sounds. Absent: distended, tenderness, guarding, rebound, rigid Right Elbow exam: Present: tenderness, swelling, ecchymosis. Absent: full ROM, deformity, crepitus, dislocation Neuro motor exam: Present: wrist extension intact, thumb opposition intact, thumb IP flexion intact, thumb adduction intact Vascular: Present: normal capillary refill, radial pulse (2+). Absent: vascular compromise Back exam: Present: normal inspection Neurological exam: Present: alert, oriented X3, CN II-XII intact Course Vital Signs 07/05/24 07/05/24 10:49 12:47 Temperature 98.9 F 98.1 F Pulse Rate 70 68 Respiratory 18 18 Rate Blood Pressure 192/104 180/80 O2 Sat by Pulse 97 99 Oximetry Procedures - Orthopedic Splinting/Casting Injury #1 Side: right Upper Extremity Injury Location: elbow Upper Extremity Immobilizer: [place] wrap, synthetic pre-padded splint (copatation splint) Other Orthopedic Equipment: other (sling) Medical Decision Making - Medical Decision Making Was pt. sent in by a medical professional or institution (, PA, GIS SOFTWARE ENGINEER, urgent care, hospital, or fci...) When possible be specific @ -No Did you speak to anyone other than the patient for history (EMS, parent, family, police, friend...)? What history was obtained from this source @ -No Did you review nursing and triage notes (agree or disagree)? Why? @ -I reviewed and agree with nursing and triage notes Were old charts reviewed (outside hosp., previous admission, EMS record, old EKG, old radiological studies, urgent care reports/EKG's, fci records)? Report findings @ -No old charts were reviewed Differential Diagnosis (chest pain, altered mental status, abdominal pain women, abdominal pain men, vaginal bleeding, weakness, fever, dyspnea, syncope, headache, dizziness, GI bleed, back pain, seizure, CVA, palpatations, mental health, musculoskeletal)? @ -Differential Musculoskeletal Muscular strain, contusion, ligament sprain, fracture, arthritis, septic arthritis, bursitis, cellulitis, muscle spasm, nerve compression, DVT, arterial occlusion, herpes zoster, electrolyte abnormality, tumor.... This is not meant to be in all inclusive list EKG interpreted by me (3pts min.). @ -None X-rays interpreted by me (1pt min.). @ -xray of the right elbow reveals a moderate radiocapitellar and ulnotrochlear joint osteoarthritis with posterior loose bodies with elbow joint effusion, no acute fracture seen. CT interpreted by me (1pt min.). @ -None done U/S interpreted by me (1pt. min.). @ -None done What testing was considered but not performed or refused? (CT, X-rays, U/S, labs)? Why? @ -None What meds were considered but not given or refused? Why? @ -None Did you discuss the management of the patient with other professionals (professionals i.e. , PA, GIS SOFTWARE ENGINEER, lab, RT, psych nurse, social services, data communications analyst, teacher, quarantine officer, caser in)? Give summary @ -No Was smoking cessation discussed for >3mins.? @ -No Was critical care preformed (if so, how long)? @ -No Were there social determinants of health that impacted care today? How? (Home lessness, low income, unemployed, alcoholism, drug addiction, transportation, low edu. Level, literacy, decrease access to med. care, group home, rehab)? @ -No Was there de-escalation of care discussed even if they declined (Discuss DNR or withdrawal of care, Hospice)? DNR status @ -No What co-morbidities impacted this encounter? (DM, HTN, Smoking, COPD, CAD, Cancer, CVA, ARF, Chemo, Hep., AIDS, mental health diagnosis, sleep apnea, morbid obesity)? @ -None Was patient admitted / discharged? Hospital course, mention meds given and route, prescriptions, significant lab abnormalities, going to OR and other pertinent info. @ -Discharged. 64-year-old male with right elbow pain after fall. My evaluation the patient is noted to be holding his right elbow however he is in no signs acute distress. He has tenderness to palpation of the right elbow and pain with passive range of motion of the elbow. Patient's risk flexion extension is intact with 2+ radial pulse and full sensation. Strong capillary refill. Patient is provided with dose of Toradol. X-ray unremarkable for acute fracture with mild elbow joint effusion. Due to patient's pain with passive range of motion and palpation he will be placed in a coaptation splint and in a sling and instructed to contact portfolio specialist to schedule a follow-up appointment. All questions have been answered at bedside and strict return parameters discussed with the patient he is verbalized understanding. Recommend patient continue to keep arm in sling and use Tylenol Motrin in addition to resting and to follow-up with portfolio specialist has been created. Discussed with my attending Dr. Jeffries Undiagnosed new problem with uncertain prognosis? @ -No Drug Therapy requiring intensive monitoring for toxicity (Heparin, Nitro, Insulin, Cardizem)? @ -No Were any procedures done? @ -coaptation splinting, sling placement Diagnosis/symptom? @ -elbow pain Acute, or Chronic, or Acute on Chronic? @ -acute Uncomplicated (without systemic symptoms) or Complicated (systemic symptoms)? @ -uncomplicated Side effects of treatment? @ -No Exacerbation, Progression, or Severe Exacerbation? @ -No Poses a threat to life or bodily function? How? (Chest pain, [place], [place], pneumonia, PE, COPD, DKA, ARF, appy, cholecystitis, CVA, Diverticulitis, Homicidal, Suicidal, threat to staff... and all critical care pts) @ -No Disposition Clinical Impression: Elbow pain, Fall Disposition: HOME SELF-CARE Condition: Good Instructions (If sedation given, give patient instructions): Elbow Bursitis (ED), Fall Prevention for Older Adults (ED) Additional Instructions: Please return to the Emergency Department if symptoms worsen or any other concerns. Recommend that you keep sling in place and follow-up outpatient with portfolio specialist for further evaluation. Continue Tylenol Motrin, rest, ice. Is patient prescribed a controlled substance at d/c from ED?: No Referrals: [facility] [NON-STAFF] - 1-2 days [facility] [NON-STAFF] - 1-2 days None,Stated [Primary Care Provider] - 1-2 days Forms: Area PCPs Time of Disposition: 12:07
[2024-07-05] MEDS: KETOROLAC 15 MG/ML 1 ML VIAL IM STA (12:16)
[2024-07-05 12:49] VITALS: BP 180/80; PULSE 68; TEMP 98.1
== END 2024-07-05 12:47 | disposition home or self-care (01) ==
LOC: EC 10:35
CPT/HCPCS: 29105; 96372; 99283

== ENCOUNTER → 2024-09-08 | Outpatient (CLI) | payer BC ==
[2024-09-08 13:33] LABS: Basophils # (A) 0.03 X 10*3/uL (0.00-0.10); Basophils % (A) 0.6 %; Eosinophils # (A) 0.12 X 10*3/uL (0.04-0.35); Eosinophils % (A) 2.6 %; HCT 44.4 % (39.6-50.0); HGB 15.1 g/dL (13.0-17.0); Lymphocytes # (A) 1.43 X 10*3/uL (0.90-5.00); Lymphocytes % (A) 30.4 %; MCH 33.1 pg (27.0-32.0); MCV 97.4 FL (80.0-97.0); Mean Platelet Volume 9.1 FL (9.5-12.2); Monocytes # (A) 0.64 X 10*3/uL (0.20-1.00); Monocytes % (A) 13.6 %; NRBC Per 100 WBC 0 X 10*3/uL (0.00-0.01); Neutrophils # (A) 2.47 X 10*3/uL (1.80-7.70); Neutrophils % (A) 52.6 %; Platelet Count 281 X 10*3/uL (140-440); RBC 4.56 X 10*6/uL (4.40-5.60); RDW 12.6 % (11.5-14.5)
[2024-09-08 14:03] LABS: ALT 13 U/L (10-49); AST 15 U/L (14-35); Albumin 4.2 g/dL (3.8-4.9); Albumin/Globulin Ratio 1.83 Ratio (1.60-3.17); Alkaline Phosphatase 100 U/L (41-126); BUN/Creat Ratio 15.38 Ratio (12.00-20.00); Blood Urea Nitrogen 12.3 mg/dL (9.0-27.0); Calcium 9.2 mg/dL (8.7-10.3); Chloride 104 mmol/L (96-109); Globulin 2.3 g/dL (1.6-3.3); Glucose 119 mg/dL (70-110); Potassium 4.2 mmol/L (3.5-5.5); Sodium 138 mmol/L (135-145); Total Bilirubin 0.6 mg/dL (0.3-1.2); Total Protein 6.5 g/dL (6.2-8.2)
== END | disposition home or self-care (01) ==
LOC: LABWHC1 10:16
DX: I10 Essential (primary) hypertension (principal); Z13.29 Encounter for screening for other suspected endocrine disorder
CPT/HCPCS: 36415; 80053; 82306; 83036; 84443; 85025

== ENCOUNTER 2025-03-17 22:30 | Emergency (ER) | payer BC ==
[2025-03-17 22:44] VITALS: TEMP 98.5
--- NOTE | 2025-03-17 23:11 | ED ---
Extremity Problem HPI - General Chief complaint: Extremity Problem,Nontraumatic Stated complaint: Left arm pain Time Seen by Provider: 03/17/25 22:46 Source: patient Mode of arrival: ambulatory Limitations: no limitations - History of Present Illness Initial comments: This patient is a 64-year-old man who presents with worsening elbow since approximately 4:00 Tuesday. The patient states that he is now not able to move the arm much at all. He has severe pain anytime he attempts to flex or extend the elbow, preferring to hold it in approximately 90 degrees of flexion. The patient denies having any known injury. He has not had fever or chills. He has noticed swelling to the elbow area. He denies weakness or numbness into the wrist or hand area. MD Complaint: extremity pain, extremity swelling Onset/Timin -: hour(s) Location: left, elbow Quality: aching Consistency: constant Improves with: immobilization Worsens with: palpation, other (Movement) Associated Symptoms: denies other symptoms - Related Data Home Medications Medication Instructions Recorded Confirmed Celecoxib [CeleBREX] 100 mg PO DAILY 02/19/22 02/19/22 amLODIPine 5 mg PO DAILY 02/19/22 02/19/22 Previous Rx's Medication Instructions Recorded Aspirin [Adult Low Dose Aspirin EC] 81 mg PO BID #60 tab 02/24/22 Docusate [Colace] 100 mg PO DAILY #30 capsule 02/24/22 HYDROcodone/APAP 7.5-325MG [[place] 1 - 2 each PO Q6HR PRN #42 tab 02/24/22 7.5] HYDROcodone/APAP 5-325MG [[place] 1 tab PO Q6H PRN 3 Days #12 tab 03/18/25 5-325] Indomethacin [Indocin] 75 mg PO DAILY #20 capsule 03/18/25 Allergies Allergy/AdvReac Type Severity Reaction Status Date / Time No Known Allergies Allergy Verified 03/17/25 22:42 Review of Systems ROS Statement: Those systems with pertinent positive or pertinent negative responses have been documented in the HPI. ROS Other: All systems not noted in ROS Statement are negative. Constitutional: Denies: fever, chills, weakness Respiratory: Denies: cough, dyspnea Cardiovascular: Denies: chest pain, palpitations, edema Gastrointestinal: Denies: abdominal pain, nausea, vomiting Genitourinary: Denies: dysuria, hematuria Musculoskeletal: Reports: as per HPI, joint swelling, arthralgia. Denies: back pain Skin: Denies: rash Neurological: Denies: headache, weakness, numbness, paresthesias Past Medical History Past Medical History: Hypertension, Osteoarthritis (OA) History of Any Multi-Drug Resistant Organisms: None Reported Past Surgical History: Hernia Repair, Joint Replacement, Orthopedic Surgery Additional Past Surgical History / Comment(s): INGUINAL HERNIA, TOTAL RIGHT KNEE (2019) left knee Past Anesthesia/Blood Transfusion Reactions: No Reported Reaction Past Psychological History: No Psychological Hx Reported Smoking Status: Current every day smoker Past Alcohol Use History: Occasional Past Drug Use History: None Reported - Past Family History Mother Family Medical History: Cancer, Diabetes Mellitus General Exam Limitations: no limitations General appearance: alert, in no apparent distress Head exam: Present: atraumatic, normocephalic Eye exam: Present: normal appearance. Absent: scleral icterus, conjunctival injection Neck exam: Present: normal inspection Respiratory exam: Present: normal lung sounds bilaterally. Absent: respiratory distress, wheezes, rales, rhonchi, stridor, accessory muscle use Cardiovascular Exam: Present: regular rate, normal rhythm, normal heart sounds. Absent: systolic murmur, diastolic murmur, rubs, gallop GI/Abdominal exam: Present: soft. Absent: tenderness Left Shoulder Exam: Present: normal inspection, full ROM. Absent: tenderness, swelling Upper Arm exam: Present: normal inspection, full ROM. Absent: tenderness, swelling Elbow exam: Present: tenderness, swelling, pain w/ pronation/supination. Absent: full ROM, abrasion, laceration, ecchymosis Hand Wrist exam: Present: normal inspection, full ROM. Absent: tenderness, swelling, abrasion, laceration, ecchymosis, deformity, erythema Neuro motor exam: Present: wrist extension intact, thumb opposition intact, thumb IP flexion intact Back exam: Present: normal inspection. Absent: tenderness, vertebral tenderness Neurological exam: Present: alert. Absent: motor sensory deficit Skin exam: Present: warm, dry, intact, normal color. Absent: rash Course Vital Signs 03/17/25 03/17/25 03/18/25 22:42 23:31 01:09 Temperature 98.5 F Pulse Rate 77 72 66 Respiratory 16 18 18 Rate Blood Pressure 214/108 215/106 200/99 O2 Sat by Pulse 95 97 Oximetry 03/18/25 04:22 Temperature Pulse Rate 65 Respiratory 16 Rate Blood Pressure 189/88 O2 Sat by Pulse 95 Oximetry Medical Decision Making - Medical Decision Making The patient had x-ray of the elbow that I interpreted as showing calcification in the soft tissue. No acute bony trauma Was pt. sent in by a medical professional or institution (, RIN, ROTARY SOIL STABILIZER OPERATOR, urgent care, hospital, or correction...) When possible be specific @ -[No] Did you speak to anyone other than the patient for history (EMS, parent, family, police, friend...)? What history was obtained from this source @ -[No] Did you review nursing and triage notes (agree or disagree)? Why? @ -[I reviewed and agree with nursing and triage notes] Were old charts reviewed (outside hosp., previous admission, EMS record, old EKG , old radiological studies, urgent care reports/EKG's, correction records)? Report findings @ -[No old charts were reviewed] Differential Diagnosis (chest pain, altered mental status, abdominal pain women, abdominal pain men, vaginal bleeding, weakness, fever, dyspnea, syncope, headache, dizziness, GI bleed, back pain, seizure, CVA, palpatations, mental health, musculoskeletal)? @ -[Differential Musculoskeletal Muscular strain, contusion, ligament sprain, fracture, arthritis, septic arthri tis, bursitis, cellulitis, muscle spasm, nerve compression, DVT, arterial occlusion, herpes zoster, electrolyte abnormality, tumor.... This is not meant to be in all inclusive list EKG interpreted by me (3pts min.). @ -[As above] X-rays interpreted by me (1pt min.). @ -[I interpreted as above CT interpreted by me (1pt min.). @ -[None done] U/S interpreted by me (1pt. min.). @ -[None done] What testing was considered but not performed or refused? (CT, X-rays, U/S, labs)? Why? @ -[None] What meds were considered but not given or refused? Why? @ -[None] Did you discuss the management of the patient with other professionals (professionals i.e. , RIN, ROTARY SOIL STABILIZER OPERATOR, lab, RT, psych nurse, social worker health services, lawyer real estate, teacher, president and chief operating officer, sample case porter)? Give summary @ -[No] Was smoking cessation discussed for >3mins.? @ -[No] Was critical care preformed (if so, how long)? @ -[No] Were there social determinants of health that impacted care today? How? (Homelessness, low income, unemployed, alcoholism, drug addiction, transportation, low edu. Level, literacy, decrease access to med. care, shelter, rehab)? @ -[No] Was there de-escalation of care discussed even if they declined (Discuss DNR or withdrawal of care, Hospice)? DNR status @ -[No] What co-morbidities impacted this encounter? (DM, HTN, Smoking, COPD, CAD, Cancer, CVA, ARF, Chemo, Hep., AIDS, mental health diagnosis, sleep apnea, mo rbid obesity)? @ -[None] Was patient admitted / discharged? Hospital course, mention meds given and route, prescriptions, significant lab abnormalities, going to OR and other pertinent info. @ -[Patient is 64-year-old man here with exacerbation of elbow pain, denies recent trauma. The exam does reveal some tenderness at the elbow and the x-ray shows heterotopic calcification. The patient did receive analGesic with some relief of symptoms. At this point no indication of septic arthritis or other acutely limb threatening pathology. Patient to follow with orthopedics for further care, return parameters discussed Undiagnosed new problem with uncertain prognosis? @ -[No] Drug Therapy requiring intensive monitoring for toxicity (Heparin, Nitro, Insulin, Cardizem)? @ -[No] Were any procedures done? @ -[No] Diagnosis/symptom? @ -[Acute arthralgia Heterotopic calcification of the elbow Acute, or Chronic, or Acute on Chronic? @ -[Acute on chronic Uncomplicated (without systemic symptoms) or Complicated (systemic symptoms)? @ -[Uncomplicated Side effects of treatment? @ -[No] Exacerbation, Progression, or Severe Exacerbation? @ -[No] Poses a threat to life or bodily function? How? (Chest pain, [place], [place], pneumonia, PE, COPD, DKA, ARF, appy, cholecystitis, CVA, Diverticulitis, Homicidal, Suicidal, threat to staff... and all critical care pts) @ -[No] All treatments are based on ideal body weight as in ED triage - Lab Data Result diagrams: 03/17/25 23:29 03/17/25 23:29 Lab Results 03/17/25 03/17/25 03/17/25 Range/Units 23:29 23:29 23:29 WBC 8.49 (4.50-10.00) 10*3/uL RBC 4.36 L (4.40-5.60) 10*6/uL Hgb 14.9 (13.0-17.0) g/dL Hct 41.6 (39.6-50.0) % MCV 95.4 (80.0-97.0) fL MCH 34.2 H (27.0-32.0) pg MCHC 35.8 (32.0-37.0) g/dL Plt Count 263 (140-440) 10*3/uL MPV 8.6 L (9.5-12.2) fL Immature Gran % (Auto) 0.2 % Neutrophils % 75.9 % Lymphocytes % 11.1 % Monocytes % 11.1 % Eosinophils % 1.2 % Basophils % 0.5 % Immature Gran # 0.02 (0.00-0.04) 10*3/uL Neutrophils # 6.45 (1.80-7.70) 10*3/uL Lymphocytes # 0.94 (0.90-5.00) 10*3/uL Monocytes # 0.94 (0.20-1.00) 10*3/uL Eosinophils # 0.10 (0.04-0.35) 10*3/uL Basophils # 0.04 (0.00-0.10) 10*3/uL Sodium 136 L (137-145) mmol/L Potassium 4.7 (3.5-5.1) mmol/L Chloride 102 (98-107) mmol/L Carbon Dioxide 25 (22-30) mmol/L Anion Gap 9 mmol/L BUN 17 (9-20) mg/dL Creatinine 0.95 (0.66-1.25) mg/dL Est GFR (CKD-EPI)AfAm >90 (>60 ml/min/1.73 sqM) Est GFR (CKD-EPI)NonAf 85 (>60 ml/min/1.73 sqM) Glucose 131 H (74-99) mg/dL Calcium 9.4 (8.4-10.2) mg/dL Magnesium 2.0 (1.6-2.3) mg/dL Total Bilirubin 0.5 (0.2-1.3) mg/dL AST 22 (17-59) U/L ALT 14 (4-49) U/L Alkaline Phosphatase 82 (38-126) U/L Troponin I <0.012 (0.000-0.034) ng/mL C-Reactive Protein 1.7 H (<1.0) mg/dL Total Protein 6.4 (6.3-8.2) g/dL Albumin 4.0 (3.5-5.0) g/dL - EKG Data -: EKG Interpreted by De EKG shows normal: sinus rhythm, axis (Normal), intervals (Normal) Rate: normal (Normal) Interpretation: [facility] Disposition Clinical Impression: Elbow pain, Heterotopic ossification of joint Disposition: HOME SELF-CARE Condition: Fair Instructions (If sedation given, give patient instructions): Arthralgia (ED) Additional Instructions: Your x-rays show presence of heterotopic ossification, which is abnormal bone formation. Follow-up with orthopedic doctor to have further physical therapy or in some cases surgery. Return to the emergency department if any of the symptoms we discussed develop Prescriptions: Indomethacin [Indocin] 75 mg PO DAILY #20 capsule HYDROcodone/APAP 5-325MG [[place] 5-325] 1 tab PO Q6H PRN 3 Days #12 tab PRN Reason: Pain Is patient prescribed a controlled substance at d/c from ED?: No Referrals: Markel Dean III, MD [Primary Care Provider] - 1-2 days Juan Stanford MD [STAFF PHYSICIAN] - 1-2 days
[2025-03-17] MEDS: MORPHINE SULFATE 4 MG/ML SYRINGE IV STA (23:32)
[2025-03-17 23:38] LABS: Basophils # (A) 0.04 10*3/uL (0.00-0.10); Basophils % (A) 0.5 %; Eosinophils # (A) 0.10 10*3/uL (0.04-0.35); Eosinophils % (A) 1.2 %; HCT 41.6 % (39.6-50.0); HGB 14.9 g/dL (13.0-17.0); Lymphocytes # (A) 0.94 10*3/uL (0.90-5.00); Lymphocytes % (A) 11.1 %; MCH 34.2 pg (27.0-32.0); MCHC 35.8 g/dL (32.0-37.0); MCV 95.4 fL (80.0-97.0); Monocytes # (A) 0.94 10*3/uL (0.20-1.00); Monocytes % (A) 11.1 %; Neutrophils # (A) 6.45 10*3/uL (1.80-7.70); Neutrophils % (A) 75.9 %; Platelet Count 263 10*3/uL (140-440); RBC 4.36 10*6/uL (4.40-5.60); RDW 11.9 % (11.5-14.5); WBC 8.49 10*3/uL (4.50-10.00)
[2025-03-18 00:47] LABS: ALT 14 U/L (4-49); AST 22 U/L (17-59); African American GFR (CKD) >90 (>60 ml/min/1.73 sqM); Albumin 4.0 g/dL (3.5-5.0); Alkaline Phosphatase 82 U/L (38-126); Anion Gap 9 mmol/L; Blood Urea Nitrogen 17 mg/dL (9-20); Calcium 9.4 mg/dL (8.4-10.2); Carbon Dioxide 25 mmol/L (22-30); Chloride 102 mmol/L (98-107); Glucose 131 mg/dL (74-99); Magnesium 2.0 mg/dL (1.6-2.3); Non-African American GFR(CKD) 85 (>60 ml/min/1.73 sqM); Potassium 4.7 mmol/L (3.5-5.1); Sodium 136 mmol/L (137-145); Total Protein 6.4 g/dL (6.3-8.2)
[2025-03-18] MEDS: MORPHINE SULFATE 4 MG/ML SYRINGE IVP STA (01:25)
--- NOTE | 2025-03-18 03:20 | XR ---
EXAM: XR Left Elbow Complete, 3 or More Views CLINICAL HISTORY: ITS.REASON XR Reason: elbow pain TECHNIQUE: Frontal, lateral and oblique views of the left elbow. COMPARISON: No relevant prior studies available. FINDINGS: Bones/joints: Extensive heterotopic ossification throughout the elbow joint. No acute fracture or dislocation. Soft tissues: Unremarkable. IMPRESSION: 1. No acute fracture or dislocation. 2. Extensive heterotopic ossification throughout the elbow joint.
[2025-03-18 04:23] VITALS: BP 189/88; PULSE 65; RESP 16
[2025-03-18] MEDS: INDOMETHACIN 25 MG CAP PO STA (04:44)
[2025-03-18] MEDS: HYDROmorphone 0.5 MG/0.5 ML SYRINGE IVP STA (04:44)
== END 2025-03-18 05:03 | disposition home or self-care (01) ==
LOC: EC 22:30
DX: Q74.0 Other congenital malformations of upper limb(s), including shoulder girdle (principal); F17.200 Nicotine dependence, unspecified, uncomplicated
CPT/HCPCS: 36415; 93005; 80053; 83735; 84484; 85025; 86140; 73080; 99284; 96374; 96375; 96376; J2270 ×2; J1171